=== PATIENT | female | born 1950 | race Caucasian/White ===

== ENCOUNTER → 2017-12-10 14:27 | Outpatient (CLI) | payer MEDICARE, OTHER, SELFPAY ==
[2017-12-10 14:39] LABS: Color, Urine Yellow (Yellow); Glucose, Dipstick Normal (Normal); Ketone-Dipstick Negative (Negative); Leukocyte Esterase-Dipstick 500 /ul (Negative); Nitrite-Dipstick Negative (Negative); Occult Blood-Urine 150 /ul (Negative); Protein-Dipstick 15 mg/dl (Negative); Urine Bilirubin Dipstick Negative (Negative); Urine Clarity Sl. Cloudy (Clear); Urine Urobilinogen Normal (Normal)
== END ==
PROVIDERS: Family Provider Family Medicine; PCP Family Medicine; Visit Provider Family Medicine
DX: N39.0 Urinary tract infection, site not specified (principal)
CPT/HCPCS: 81002; 87086; 87088

== ENCOUNTER → 2018-02-04 14:12 | Outpatient (CLI) | payer MEDICARE, OTHER, SELFPAY ==
--- NOTE | 2018-02-04 14:18 | RAD_ITS ---
STUDY: X-RAY CHEST REASON FOR EXAM: Female, 67 years old. Persistent cough. Chronic bronchitis. TECHNIQUE: PA and lateral views of the chest. COMPARISON: Comparison is made with prior study dated July 29, 2015. FINDINGS: Stable elevation of the right hemidiaphragm. No acute abnormality is seen. There is no demonstrated pleural abnormality. Normal size heart. Normal mediastinum and daisy. Normal visualized pulmonary arteries. Normal visualized aortic arch and descending thoracic aorta. There is a levoscoliosis of the thoracic lumbar junction. There is degenerative osteoarthritis of the bilateral shoulders. There is no demonstrated abnormality of the visualized soft tissue structures of the upper abdomen. RAD/Chest PA and Lateral IMPRESSION: Stable examination. No acute abnormality is seen. Electronically Signed: Gorge Welsh MD at 14:42 EDT Tel [phone], Service support ,
== END ==
PROVIDERS: Family Provider Family Medicine; PCP Family Medicine; Visit Provider Nurse Practitioner Acute Care
DX: J42 Unspecified chronic bronchitis (principal)
CPT/HCPCS: 71046

== ENCOUNTER 2018-02-06 03:00 | Emergency (ER) | payer MEDICARE, OTHER, SELFPAY ==
[2018-02-06 03:01] VITALS: BP 135/68; PULSE 84; RESP 24; TEMP 36.8; O2SAT 98; BMI 25.7
--- NOTE | 2018-02-06 03:16 | EKG12_ITS ---
Test Reason : SOB Blood Pressure : / mmHG Vent. Rate : 079 BPM Atrial Rate : 079 BPM P-R Int : 164 ms QRS Dur : 090 ms QT Int : 384 ms P-R-T Axes : 016 078 044 degrees QTc Int : 440 ms Normal sinus rhythm Incomplete right bundle branch block Confirmed by ROVERTO HERMAN, MATEO ([id number]), editor managing director JEFF GARCIA ([id number] on 02/09/2018 2:33:49 PM Referred By: Geovanna Pérez Confirmed By:MATEO LAYNE MD
--- NOTE | 2018-02-06 03:16 | RAD_ITS ---
STUDY: X-RAY CHEST REASON FOR EXAM: Female, 67 years old. Cough TECHNIQUE: Frontal and lateral views of the chest. COMPARISON: 02/04/2018 FINDINGS: The lungs are clear and expanded. There is no demonstrated pleural abnormality. Normal size heart. Normal mediastinum and daisy. Normal visualized pulmonary arteries. Normal visualized aortic arch and descending thoracic aorta. S shaped thoracolumbar scoliosis. Left rotator cuff repair. Remote rib trauma. There is no demonstrated abnormality of the visualized soft tissue structures of the upper abdomen. RAD/Chest PA and Lateral IMPRESSION: No acute pulmonary findings. Electronically Signed: Parag Baig MD at 4:53 EDT Tel , Service support ,
--- NOTE | 2018-02-06 03:17 | ED.VISSUMM ---
- ER Visit Summary Date of Service: 02/06/18 Chief Complaint: [] Shortness of breath, wheezing History of Present Illness: The patient is a 67 F [] history of asthma presents with wheezing in all nation. She reports she was seen by her prototype technician yesterday, received an intramuscular shot of steroids, underwent an x-ray which was reportedly negative and was started on azithromycin orally. She reports symptoms have worsened. She reports onset of symptoms approximately 5-6 days ago. Denies fevers. Reports cough productive of sputum. Denies hemoptysis. Physical Examination: [] Afebrile, vital signs stable. 67-year-old female no acute distress. Cardiovascular exam is regular rate and rhythm. Lungs reveal audible wheezing in all nation. Abdomen is soft and nontender. No lower extremity edema. Test Results: [] Chest x-ray 2 views: Negative per radiologist interpretation. Labs: CBC, BMP, troponin within normal limits. JG: Normal sinus rhythm, rate 79, no ectopy or ischemic changes. Unchanged from previous EKG. Emergency Department Course and Treatment: [] Patient received 3 albuterol and one Atrovent aerosols. She received intravenous Solu-Medrol. On serial exam she had improvement of symptoms. She had a negative lab and diagnostic workup. On serial exam she had improvement of symptoms however appears slightly anxious and was reporting muscle cramping her back secondary to coughing. She was provided 1 mg of Ativan intravenously prior to discharge. Her is at the bedside will drive her home. She was encouraged to fill her prescription for her Levaquin today. Follow-up with her prototype technician in the next several days. Treatment Plan: [] Discharge to follow-up with prototype technician. Initiate Levaquin prescription as provided by the prototype technician yesterday. Disposition: [] Discharge, stable. Impression: [] Bronchitis Bronchospasm This note was generated with [employer] dictation software. It may contain incorrect words, spelling, and punctuation that were not noted in review of the chart prior to signing ED Disposition - Plan for ED Patient: Chief Complaint: Shortness of Breath Referrals: Mayo Mccormick MD [Primary Care Provider] -
[2018-02-06 03:26] VITALS: PULSE 87; RESP 24; O2SAT 96
[2018-02-06] MEDS: Albuterol 2.5 MG/3 ML VIAL.NEB. INHALATION ×3 (03:26→03:33)
[2018-02-06] MEDS: Ipratropium/Albuterol Sulfate 3 ML AMPUL.NEB INHALATION (03:26)
[2018-02-06 03:33] VITALS: PULSE 89; RESP 22; O2SAT 97
[2018-02-06] MEDS: MethylPREDNISolone 125 MG/2 ML Vial IV (03:42)
[2018-02-06 03:56] LABS: Absolute Neutrophil Count 2.2 X10^3/uL (2.0-7.7); Basophil# 0.03 X10^3/uL; Basophil% 0.8 % (0-1); Eosinophil# 0.04 X10^3/uL; Eosinophils% 1.1 % (0-5); Hematocrit 43.8 % (37-47); Hemoglobin 14.2 g/dl (12.0-15.0); Lymphocyte % 24.7 % (19-41); Mean Corp Hgb Conc 32.4 g/gl (32-36); Mean Corpuscular Hgb 32.6 pg (27.0-32.0); Mean Corpuscular Volume 100.5 fL (81-99); Mean Platelet Vol. 11.3 fl (6.2-12.0); Monocyte# 0.44 X10^3/uL; Monocyte% 12.1 % (0-10); Neutrophil # 2.23 X10^3/uL (2.7-7.7); Neutrophil % 61.3 % (47-70); POSITIVE COUNT NO; POSITIVE DIFFERENTIAL NO; POSITIVE MORPHOLOGY NO; Platelet Count 109 K/mm3 (150-450); RBC Distribution Width SD 51.1 fl (35.1-43.9); Red Blood Count 4.36 M/mm3 (4.2-5.4); White Blood Count 3.6 K/mm3 (4.4-11.0)
[2018-02-06 04:11] LABS: Anion Gap 7 (5-15); BUN 18 mg/dL (7-18); BUN/Creat Ratio 21.8 RATIO (10-20); Calcium,Total 8.9 mg/dL (8.5-10.1); Chloride 111 mmol/L (98-107); Creatinine, Serum 0.82 mg/dL (0.55-1.02); EST Glomerular Filtration Rate 73 mL/min (>60); Est Glom Filt Rate - Afr Amer 89 mL/min (>60); Estimated Creatinine Clearance 47.82 ml/min; Glucose 84 mg/dL (74-106); Potassium 3.4 mmol/L (3.5-5.1); Sodium Level 147 mmol/L (136-145)
--- NOTE | 2018-02-06 05:01 | ED.DEP ---
ED Disposition - Plan for ED Patient: Disposition: Home or Assisted Living Chief Complaint: Shortness of Breath Instructions: ED Bronchitis Asthmatic Referrals: Mayo Mccormick MD [Primary Care Provider] -
[2018-02-06] MEDS: LORazepam 2 MG/ML Syringe 1 MG IV (05:04)
[2018-02-06 05:17] VITALS: BP 126/71; PULSE 94; RESP 18; O2SAT 96
== END 2018-02-06 05:18 | disposition home or self-care (01) ==
PROVIDERS: Emergency Provider Emergency Medicine; Family Provider Family Medicine; PCP Family Medicine
DX: J20.9 Acute bronchitis, unspecified (principal); J44.9 Chronic obstructive pulmonary disease, unspecified; Z79.899 Other long term (current) drug therapy
CPT/HCPCS: 71046; 80048; 84484; 85025; 93005; 94640; 96374; 96375; 99284; A4216

== ENCOUNTER 2018-02-07 15:05 | Emergency (ER) | payer MEDICARE, OTHER, SELFPAY ==
[2018-02-07 15:07] VITALS: BP 121/90; PULSE 113; RESP 23; TEMP 37; O2SAT 97; BMI 25.6
--- NOTE | 2018-02-07 15:12 | EKG12_ITS ---
Test Reason : COUGH Blood Pressure : / mmHG Vent. Rate : 117 BPM Atrial Rate : 117 BPM P-R Int : 148 ms QRS Dur : 082 ms QT Int : 328 ms P-R-T Axes : 050 086 026 degrees QTc Int : 457 ms Sinus tachycardia Nonspecific ST and T wave abnormality Abnormal ECG Confirmed by MIRA LOCO ([id number]), publications editor JEFF GARCIA ([id number]) on 02/21/2018 5:24:04 PM Referred By: Geovanna Pérez Confirmed By:MIRA LOCO
--- NOTE | 2018-02-07 15:12 | RAD_ITS ---
STUDY: X-RAY CHEST REASON FOR EXAM: Female, 67 years old. Cough. TECHNIQUE: Single PA view of the chest. COMPARISON: February 06, 2018. FINDINGS: The lungs are expanded. There is mild elevation of right hemidiaphragm. There is interstitial thickening visible both lungs. There is no demonstrated pleural abnormality. Normal size heart. Normal mediastinum and daisy. There is prominence of the pulmonary hilar arteries without peripheral pulmonary vascular congestion. There is atherosclerotic calcification of the aortic arch with tortuosity. There is demineralization of the osseous structures. There is moderate scoliosis of the thoracic and lumbar spine with convexity towards left. Estimated angulation is approximately 33 degrees. There are multilevel degenerative changes of the thoracic and lumbar spine. Patient has had previous left-sided shoulder surgery. There is no demonstrated abnormality of the visualized soft tissue structures of the upper abdomen. RAD/Chest 1 View (Portable) IMPRESSION: No radiographic evidence of acute cardiopulmonary disease. Electronically Signed: Olive Renner MD at 16:19 EDT , Service support ,
[2018-02-07] MEDS: Ipratropium/Albuterol Sulfate 3 ML AMPUL.NEB INHALATION (15:54)
[2018-02-07] MEDS: Albuterol 2.5 MG/3 ML VIAL.NEB. INHALATION ×3 (15:54→16:20)
[2018-02-07 16:06] VITALS: RESP 22; O2SAT 96
[2018-02-07 16:17] VITALS: O2SAT 96
[2018-02-07 16:20] VITALS: PULSE 120; RESP 18
--- NOTE | 2018-02-07 16:53 | ED.VISSUMM ---
- ER Visit Summary Date of Service: 02/07/18 Chief Complaint: Trouble breathing nonproductive cough History of Present Illness: The patient is a 67 F who was seen on the . She was given a prescription for levofloxacin Wednesday. She had take her first dose until today. She is presently on a tapering dose of prednisone. She denies history of PE or DVT. She denies any pleuritic chest pain. She does complain of a nonproductive cough. She also complains of congestion. She smoked for 1 year. She denies headache, visual, ocular auditory symptoms. She does complain of mild congestion and change in voice. She denies difficulty swallowing. She denies any chest pain. She denies nausea, vomiting or diarrhea. She denies any skin lesions. Physical Examination: Next field vital signs remarkable for a heart rate of 113 and respiratory 22. Pulse ox is 96% on room air. Temperature is 98.0?F. Patient has a hoarse voice. Head is atraumatic, cephalic. Pupils equal round reactive. Extra muscle intact. Conjunctive is not injected. TMs are normal. Nares are patent with no discharge. Uvula is midline with no posterior erythema XA. There is no postnasal drainage noted. Trachea is midline. There is no stridor. There is expiratory wheezing noted. Heart is rapid and regular. Abdomen is soft nontender. Insert lower extremity DVT she is alert oriented with a nonfocal neurologic exam. Test Results: Chest x-ray was ordered by nursing staff. Review of x-ray/interpretation of 2 view reveals no acute process. Cardiac silhouette is normal. Mediastinum is normal. There is no infiltrate noted. Emergency Department Course and Treatment: Patient was treated with DuoNeb, albuterol and Hycodan for her cough. Treatment Plan: Patient states she has had no improvement. I was in the room for discharge interview when she was not coughing. When I initially went to see her she could not stop coughing. She no longer has wheezing. She is not hypoxic therefore she will be discharged to home. A prescription for a spacer was given and a prescription for Hycodan cough syrup. Disposition: To home in stable and improved condition Impression: 1. Exacerbation of bronchitis with bronchospasm 2. Laryngitis This note was generated with [employer] software. It may contain incorrect words, spelling, and punctuation that were not noted in review of the chart prior to signing ED Disposition - Plan for ED Patient: Disposition: Home or Assisted Living Chief Complaint: Cough Instructions: ED Bronchitis Asthmatic Prescriptions: Hydrocodone Bit/Homatropine [Hycodan Syrup] 5 ml PO Q6H PRN PRN #30 udc PRN Reason: Cough Inhaler, Assist Devices [Space Chamber Plus] 1 ea UD #1 spacer Referrals: Mayo Mccormick MD [Primary Care Provider] - 3-5 Days if not improving Additional Instructions: Your prescription was electronically transmitted to [facility] pharmacy.
--- NOTE | 2018-02-07 17:02 | ED.DCSUM_ITS ---
- ER Visit Summary Date of Service: 02/07/18 Chief Complaint: Trouble breathing nonproductive cough History of Present Illness: The patient is a 67 F who was seen on the . She was given a prescription for levofloxacin Wednesday. She had take her first dose until today. She is presently on a tapering dose of prednisone. She denies history of PE or DVT. She denies any pleuritic chest pain. She does complain of a nonproductive cough. She also complains of congestion. She smoked for 1 year. She denies headache, visual, ocular auditory symptoms. She does complain of mild congestion and change in voice. She denies difficulty swallowing. She denies any chest pain. She denies nausea, vomiting or diarrhea. She denies any skin lesions. Physical Examination: Next field vital signs remarkable for a heart rate of 113 and respiratory 22. Pulse ox is 96% on room air. Temperature is 98.0?F. Patient has a hoarse voice. Head is atraumatic, cephalic. Pupils equal round reactive. Extra muscle intact. Conjunctive is not injected. TMs are normal. Nares are patent with no discharge. Uvula is midline with no posterior erythema XA. There is no postnasal drainage noted. Trachea is midline. There is no stridor. There is expiratory wheezing noted. Heart is rapid and regular. Abdomen is soft nontender. Insert lower extremity DVT she is alert oriented with a nonfocal neurologic exam. Test Results: Chest x-ray was ordered by nursing staff. Review of x-ray/ interpretation of 2 view reveals no acute process. Cardiac silhouette is normal. Mediastinum is normal. There is no infiltrate noted. Emergency Department Course and Treatment: Patient was treated with DuoNeb, albuterol and Hycodan for her cough. Treatment Plan: Patient states she has had no improvement. I was in the room for discharge interview when she was not coughing. When I initially went to see her she could not stop coughing. She no longer has wheezing. She is not hypoxic therefore she will be discharged to home. A prescription for a spacer was given and a prescription for Hycodan cough syrup. Disposition: To home in stable and improved condition Impression: 1. Exacerbation of bronchitis with bronchospasm 2. Laryngitis This note was generated with [employer] software. It may contain incorrect words, spelling, and punctuation that were not noted in review of the chart prior to signing ED Disposition - Plan for ED Patient: Disposition: Home or Assisted Living Chief Complaint: Cough Instructions: ED Bronchitis Asthmatic Prescriptions: Hydrocodone Bit/Homatropine [Hycodan Syrup] 5 ml PO Q6H PRN PRN #30 udc PRN Reason: Cough Inhaler, Assist Devices [Space Chamber Plus] 1 ea UD #1 spacer Referrals: Mayo Mccormick MD [Primary Care Provider] - 3-5 Days if not improving Additional Instructions: Your prescription was electronically transmitted to [facility] pharmacy.
[2018-02-07 17:10] VITALS: BP 122/69; PULSE 73; RESP 15; O2SAT 95
--- NOTE | 2018-02-08 16:09 | CM.ED ---
ED CALLBACK: Follow-up call placed to patient. Carmita states she is feeling some better today, but still has a productive cough. Reviewed with patient that she has an appointment with Dr. Huerta on 02/16/18. Patient states she did fill her prescriptions and is using them. I encouraged the patient to go ahead and make an appointment with her PCP. Patient states that she will do this today or tomorrow morning.
== END 2018-02-07 17:11 | disposition home or self-care (01) ==
PROVIDERS: Emergency Provider Emergency Medicine; Family Provider Family Medicine; PCP Family Medicine
DX: J20.9 Acute bronchitis, unspecified (principal); I10 Essential (primary) hypertension; E78.00 Pure hypercholesterolemia, unspecified; F32.9 Major depressive disorder, single episode, unspecified; K21.9 Gastro-esophageal reflux disease without esophagitis; Z87.891 Personal history of nicotine dependence; Z79.899 Other long term (current) drug therapy
CPT/HCPCS: 71045; 93005; 94640; 94760; 99284

== ENCOUNTER → 2018-05-04 17:49 | Outpatient (CLI) | payer MEDICARE, OTHER, SELFPAY | PROVIDERS: Family Provider Family Medicine; PCP Family Medicine; Visit Provider Nurse Practitioner Family | DX: N39.0 Urinary tract infection, site not specified (principal) | CPT/HCPCS: 87086; 87088 ==

== ENCOUNTER → 2018-05-17 12:55 | Outpatient (CLI) | payer MEDICARE, OTHER, SELFPAY ==
--- NOTE | 2018-05-17 14:19 | PFTCOMP ---
COMPLETE PULMONARY FUNCTION TEST INTERPRETATION Brief HPI: Patient is a 68 year old female, currently under the care of myself, who presents to [facility] for complete pulmonary function tests secondary to diagnosis of dyspnea. Respiratory therapist reports good effort and reproducible results. Interpretation: Forced expiration spirometry shows no large airways obstructive ventilatory defect with an FEV1 of 75% predicted. There is no significant bronchodilator response by ATS criteria. Spirograms are of good quality and plateau normally. The respiratory flow volume loop shows a normal pattern. Lung volumes by body plethysmography show a decreased total lung capacity at 3.05 L, 76% predicted. All other lung volumes are reduced symmetrically. Diffusion capacity by carbon monoxide is normal at 85% predicted. The airway resistance is elevated. Compared to previous pulmonary function tests from 02/10/2017, there has been a significant reduction in DLCO by 13%. Impression: Mild restrictive ventilatory defect with some decrease in DLCO compared to previous testing.
== END ==
PROVIDERS: Family Provider Family Medicine; PCP Family Medicine; Visit Provider Nurse Practitioner Acute Care
DX: R06.00 Dyspnea, unspecified (principal)
CPT/HCPCS: 94060; 94726; 94729

== ENCOUNTER → 2018-05-19 12:22 | Outpatient (CLI) | payer MEDICARE, OTHER, SELFPAY ==
[2018-05-19 12:42] VITALS: PULSE 89; PULSE 91; PULSE 92; PULSE 93; PULSE 94; PULSE 95; PULSE 98; O2SAT 94; O2SAT 96; O2SAT 97; O2SAT 98
--- NOTE | 2018-05-19 15:16 | PCM.PSN.6M ---
PSN 6 Minute Walk Test - 6 Minute Walk Test 6 Minute Walk Test: 6 Minute Walk Test PSN:6-Minute Walk Test Start: 05/19/18 12:42 Freq: Status: Active Protocol: RESP.6MINW Document 05/19/18 12:42 GIOVANNI (Rec: 05/19/18 12:44 GIOVANNI [id number]) 6 Minute Walk Test Date Performed 05/19/18 Time Performed 12:30 Height 5 ft Weight: 58.967 kg Weight in Pounds 130.[address]: Ezio Huerta Assistive device used: None Pre-test Oxygen Delivery Method Room Air Pulse Ox (%) 97 Pulse Rate (60-100 beats/min) 91 Dyspnea Herminia Scale (0-10) 0 Exertion Herminia Scale (6-20) 6 1st minute Oxygen Delivery Method Room Air Pulse Ox (%) 98 Pulse Rate (60-100 beats/min) 89 2nd minute Oxygen Delivery Method Room Air Pulse Ox (%) 98 Pulse Rate (60-100 beats/min) 92 3rd minute Oxygen Delivery Method Room Air Pulse Ox (%) 96 Pulse Rate (60-100 beats/min) 94 4th minute Oxygen Delivery Method Room Air Pulse Ox (%) 98 Pulse Rate (60-100 beats/min) 94 5th minute Oxygen Delivery Method Room Air Pulse Ox (%) 97 Pulse Rate (60-100 beats/min) 93 6th minute Oxygen Delivery Method Room Air Pulse Ox (%) 94 Pulse Rate (60-100 beats/min) 95 Dyspnea Herminia Scale (0-10) 2 Exertion Herminia Scale (6-20) 11 Post-test Oxygen Delivery Method Room Air Pulse Ox (%) 97 Pulse Rate (60-100 beats/min) 98 Full Laps Walked 20 Partial Lap, Number of Tiles Walked 0 Total Distance Walked (ft) 1180 - Interpretation Interpretation: The patient was able to ambulate 1180 over the course of 6 minutes on room air with no assistive devices or breaks. The patient experienced no significant desaturation or tachycardia during testing. These findings are consistent with a normal exercise oximetry. - Recommendations Recommendations: No supplemental oxygen is indicated at this time.
== END ==
PROVIDERS: Family Provider Family Medicine; PCP Family Medicine; Visit Provider Nurse Practitioner Acute Care
DX: R06.00 Dyspnea, unspecified (principal)
CPT/HCPCS: 94618

== ENCOUNTER → 2018-06-14 20:00 | Outpatient (CLI) | payer MEDICARE, OTHER, SELFPAY | PROVIDERS: Family Provider Family Medicine; PCP Family Medicine; Visit Provider Internal Medicine Critical Care Medicine | DX: G47.10 Hypersomnia, unspecified (principal); J45.40 Moderate persistent asthma, uncomplicated; J30.1 Allergic rhinitis due to pollen; M33.90 Dermatopolymyositis, unspecified, organ involvement unspecified | CPT/HCPCS: 95810 ==

== ENCOUNTER → 2018-06-21 20:00 | Outpatient (CLI) | payer MEDICARE, OTHER, SELFPAY | PROVIDERS: Family Provider Family Medicine; PCP Family Medicine; Visit Provider Nurse Practitioner Acute Care | DX: G47.33 Obstructive sleep apnea (adult) (pediatric) (principal) | CPT/HCPCS: 95811 ==

== ENCOUNTER → 2018-09-15 12:44 | Outpatient (CLI) | payer MEDICARE, OTHER, SELFPAY ==
[2018-08-24 09:42] VITALS: BMI 26.0
--- NOTE | 2018-09-15 12:59 | RAD_ITS ---
STUDY: X-RAY - ACUTE ABDOMINAL SERIES REASON FOR EXAM: Female, 68 years old. Intermittent constipation TECHNIQUE: Single view of the chest. Supine, and erect view(s) of the abdomen were obtained. 4 total views obtained COMPARISON: None. FINDINGS: Stable chronic elevation of the right hemidiaphragm There are interstitial fibrotic changes of the lungs. Normal size heart. Normal mediastinum and daisy. Normal visualized pulmonary arteries. Normal visualized aortic arch and descending thoracic aorta. There is a non-specific bowel gas pattern. The soft tissue structures of the abdomen and pelvis are unremarkable. Rotatory scoliosis of the thoracolumbar spine. RAD/Acute Abdomen Inc Chest IMPRESSION: No acute pulmonary or abdominal process Scoliosis Electronically Signed: Benedicto Amador MD at 12:04 EST , Service support ,
== END ==
PROVIDERS: Family Provider Family Medicine; PCP Family Medicine; Referring Provider Family Medicine; Visit Provider Family Medicine
DX: K58.9 Irritable bowel syndrome, unspecified (principal)
CPT/HCPCS: 74022

== ENCOUNTER → 2018-10-28 17:34 | Outpatient (CLI) | payer MEDICARE, OTHER, SELFPAY ==
[2018-08-24 09:42] VITALS: BMI 26.0
== END ==
PROVIDERS: Family Provider Family Medicine; PCP Family Medicine; Referring Provider Family Medicine; Visit Provider Family Medicine
DX: R39.9 Unspecified symptoms and signs involving the genitourinary system (principal)
CPT/HCPCS: 87086; 87088

== ENCOUNTER → 2018-12-01 17:26 | Outpatient (CLI) | payer MEDICARE, OTHER, SELFPAY ==
[2018-08-24 09:42] VITALS: BMI 26.0
== END ==
PROVIDERS: Family Provider Family Medicine; PCP Family Medicine; Referring Provider Nurse Practitioner Adult Health; Visit Provider Nurse Practitioner Adult Health
DX: N39.0 Urinary tract infection, site not specified (principal)
CPT/HCPCS: 87086; 87088

== ENCOUNTER → 2018-12-12 08:15 | Outpatient (CLI) | payer MEDICARE, OTHER, SELFPAY ==
[2018-08-24 09:42] VITALS: BMI 26.0
--- NOTE | 2018-12-12 08:18 | US_ITS ---
STUDY: THYROID ULTRASOUND REASON FOR EXAM: Female, 68 years old. Thyroid nodule TECHNIQUE: Ultrasound evaluation of the thyroid was performed with real-time and static singh-scale imaging. COMPARISON: 01/23/2016 FINDINGS: RIGHT LOBE: The right lobe of the thyroid gland measures 4 x 1.8 x 1.7 cm. There is a homogeneous echotexture. Again noted are 2 subcentimeter complex nodules, largest one measuring 3 x 3 x 3 mm LEFT LOBE: The left lobe of the thyroid gland measures 4 x 2 x 1.4 cm. There is a homogeneous echotexture. Again noted are several subcentimeter complex and primarily solid nodules. Largest is in the mid pole region measuring 5 x 5 x 3 mm. ISTHMUS: The isthmus measures 2 mm. The regional lymph nodes are normal. US/Thyroid IMPRESSION: Stable subcentimeter nodules bilaterally, otherwise unremarkable exam Electronically Signed: Ramón Liz DO at 12:50 EDT Tel , Service support ,
== END ==
PROVIDERS: Family Provider Family Medicine; PCP Family Medicine; Referring Provider Family Medicine; Visit Provider Family Medicine
DX: E04.2 Nontoxic multinodular goiter (principal)
CPT/HCPCS: 76536

== ENCOUNTER → 2018-12-19 | Outpatient (CLI) | payer MEDICARE, OTHER, SELFPAY ==
[2018-08-24 09:42] VITALS: BMI 26.0
[2018-12-19 12:39] LABS: Absolute Lymphocyte Count 0.69 X10^3/ul (0.83-4.51); Absolute Neutrophil Count 1.6 X10^3/uL (2.0-7.7); Basophil# 0.06 X10^3/uL; Basophil% 2.2 % (0-1); Eosinophil# 0.06 X10^3/uL; Eosinophils% 2.2 % (0-5); Hematocrit 44.2 % (37-47); Hemoglobin 14.2 g/dl (12.0-15.0); Lymphocyte # 0.69 X10^3/ul (4.0); Lymphocyte % 25.2 % (19-41); Mean Corp Hgb Conc 32.1 g/gl (32-36); Mean Corpuscular Hgb 31.8 pg (27.0-32.0); Mean Corpuscular Volume 99.1 fL (81-99); Mean Platelet Vol. 12.3 fl (6.2-12.0); Monocyte# 0.31 X10^3/uL; Monocyte% 11.3 % (0-10); Neutrophil # 1.62 X10^3/uL (2.7-7.7); Neutrophil % 59.1 % (47-70); Platelet Count 100 K/mm3 (150-450); RBC Distribution Width CV 13.5 % (11.6-14.6); RBC Distribution Width SD 48.2 fl (35.1-43.9); Red Blood Count 4.46 M/mm3 (4.2-5.4); White Blood Count 2.7 K/mm3 (4.4-11.0)
[2018-12-19 12:50] LABS: POSITIVE COUNT NO; POSITIVE DIFFERENTIAL NO; POSITIVE MORPHOLOGY NO
== END | disposition home or self-care (01) ==
LOC: MTLAB 09:17
PROVIDERS: Family Provider Family Medicine; PCP Family Medicine; Referring Provider Internal Medicine Rheumatology; Visit Provider Internal Medicine Rheumatology
DX: D72.819 Decreased white blood cell count, unspecified (principal)
CPT/HCPCS: 36415; 85025

== ENCOUNTER → 2018-12-28 12:56 | Outpatient (CLI) | payer MEDICARE, OTHER, SELFPAY ==
[2018-08-24 09:42] VITALS: BMI 26.0
--- NOTE | 2018-12-28 12:59 | BI_ITS ---
MAMMOGRAPHY - BILATERAL SCREENING REASON FOR EXAM: Female, 68 years old. Routine annual screening examination. PERTINENT HISTORY: Non-contributory. TECHNIQUE: Digital bilateral breast apurva (3D mammographic acquisition) in the CC and MLO projections. 2-D mediolateral oblique (MLO) and craniocaudad (CC) views of both breasts were obtained. CAD: Full Field Digital Mammography with Computer Added Detection was performed. COMPARISON: Comparison is made with prior study dated January 06, 2017 and August 06, 2015. FINDINGS: Breast Composition: The breasts are heterogeneously dense, which may obscure small masses. There are no dominant masses or suspicious calcifications. No other significant abnormalities are identified. There has been no significant change since the prior study. BI/SCREENING MAMM (CAD), BILAT IMPRESSION: Stable bilateral screening mammogram. Yearly follow-up mammogram recommended. (A) ASSESSMENT CATEGORY: BIRADS Category 1: Negative. A letter regarding these results will be sent to the patient by the facility within 30 days. Approximately 10% of breast cancers are not detected by mammography. A normal mammogram should not delay biopsy of a clinically suspicious abnormality. [id number] Electronically Signed: Gorge Welsh, at 15:02 EDT , Service support ,
== END ==
PROVIDERS: Family Provider Family Medicine; PCP Family Medicine; Referring Provider Obstetrics & Gynecology; Visit Provider Obstetrics & Gynecology
DX: Z12.31 Encounter for screening mammogram for malignant neoplasm of breast (principal)
CPT/HCPCS: 77063; 77067

== ENCOUNTER → 2019-01-03 08:59 | Outpatient (CLI) | payer MEDICARE, OTHER, SELFPAY ==
[2018-08-24 09:42] VITALS: BMI 26.0
[2019-01-03 10:34] LABS: Absolute Neutrophil Count 2.1 X10^3/uL (2.0-7.7); Basophil# 0.06 X10^3/uL; Basophil% 1.8 % (0-1); Eosinophil# 0.06 X10^3/uL; Eosinophils% 1.8 % (0-5); Hematocrit 45.9 % (37-47); Hemoglobin 14.5 g/dl (12.0-15.0); Lymphocyte % 20.8 % (19-41); Mean Corp Hgb Conc 31.6 g/gl (32-36); Mean Corpuscular Hgb 31.6 pg (27.0-32.0); Mean Platelet Vol. 12.3 fl (6.2-12.0); Monocyte# 0.41 X10^3/uL; Monocyte% 12.2 % (0-10); Neutrophil # 2.14 X10^3/uL (2.7-7.7); Neutrophil % 63.4 % (47-70); Platelet Count 113 K/mm3 (150-450); RBC Distribution Width CV 13.5 % (11.6-14.6); RBC Distribution Width SD 49.2 fl (35.1-43.9); Red Blood Count 4.59 M/mm3 (4.2-5.4); White Blood Count 3.4 K/mm3 (4.4-11.0)
[2019-01-03 10:35] LABS: POSITIVE COUNT NO; POSITIVE DIFFERENTIAL NO; POSITIVE MORPHOLOGY NO
== END ==
PROVIDERS: Family Provider Family Medicine; PCP Family Medicine; Referring Provider Internal Medicine Rheumatology; Visit Provider Internal Medicine Rheumatology
DX: D72.819 Decreased white blood cell count, unspecified (principal)
CPT/HCPCS: 36415; 85025

== ENCOUNTER → 2019-04-03 09:14 | Outpatient (CLI) | payer MEDICARE, OTHER, SELFPAY ==
[2019-02-28 14:00] VITALS: BMI 25.5
[2019-04-03 09:45] LABS: Absolute Lymphocyte Count 0.67 X10^3/uL (0.83-4.51); Basophil# 0.05 X10^3/uL; Basophil% 1.6 % (0-1); Eosinophil# 0.08 X10^3/uL; Eosinophils% 2.6 % (0-5); Hematocrit 46.6 % (37-47); Lymphocyte # 0.67 X10^3/ul (4.0); Lymphocyte % 21.4 % (19-41); Mean Corp Hgb Conc 32.2 g/dL (32-36); Mean Corpuscular Hgb 31.4 pg (27.0-32.0); Mean Corpuscular Volume 97.7 fL (81-99); Mean Platelet Vol. 11.8 fl (6.2-12.0); Monocyte# 0.34 X10^3/uL; Monocyte% 10.9 % (0-10); NRBC Flagged by Analyzer 0 % (0-5); Neutrophil # 1.98 X10^3/uL (2.7-7.7); Neutrophil % 63.2 % (47-70); Platelet Count 99 K/mm3 (150-450); RBC Distribution Width CV 12.4 % (11.6-14.6); RBC Distribution Width SD 44.8 fl (35.1-43.9); Red Blood Count 4.77 M/mm3 (4.2-5.4); White Blood Count 3.1 K/mm3 (4.4-11.0)
[2019-04-03 10:25] LABS: Anion Gap 1 (5-15); BUN 15 mg/dL (7-18); BUN/Creat Ratio 17.1 RATIO (10-20); Calcium,Total 9.3 mg/dL (8.5-10.1); Chloride 107 mmol/L (98-107); Cholesterol 145 mg/dL (200); Creatinine, Serum 0.88 mg/dL (0.55-1.02); EST Glomerular Filtration Rate 68 mL/min (>60); Est Glom Filt Rate - Afr Amer 82 mL/min (>60); Glucose 86 mg/dL (74-106); High Density Lipoprotein 69 mg/dL; Potassium 3.8 mmol/L (3.5-5.1); Sodium Level 139 mmol/L (136-145); Thyroid Stim Hormone (TSH) 2.08 uIU/mL (0.358-3.74); Triglycerides 66 mg/dL; Very Low Density Lipoprotein 13 mg/dL (5-40)
== END ==
PROVIDERS: Family Provider Family Medicine; Visit Provider Family Medicine
DX: Z00.00 Encounter for general adult medical examination without abnormal findings (principal); E04.2 Nontoxic multinodular goiter; D69.6 Thrombocytopenia, unspecified; K58.9 Irritable bowel syndrome, unspecified
CPT/HCPCS: 36415; 80048; 80061; 84443; 85025

== ENCOUNTER → 2019-05-25 10:38 | Outpatient (CLI) | payer MEDICARE, OTHER, SELFPAY ==
[2019-02-28 14:00] VITALS: BMI 25.5
[2019-05-25 11:00] VITALS: PULSE 73; PULSE 76; PULSE 78; PULSE 79; PULSE 80; PULSE 81; PULSE 82; PULSE 85; O2SAT 95; O2SAT 96; O2SAT 97; O2SAT 98
--- NOTE | 2019-05-26 08:45 | PCM.PSN.6M ---
PSN 6 Minute Walk Test - 6 Minute Walk Test 6 Minute Walk Test: 6 Minute Walk Test PSN:6-Minute Walk Test Start: 05/25/19 11:24 Freq: Status: Active Protocol: RESP.6MINW Document 05/25/19 11:00 HG (Rec: 05/25/19 11:28 HG [id number]) 6 Minute Walk Test Date Performed 05/25/19 Time Performed 11:00 Height 5 ft Weight: 130 lb Weight in Pounds 130.[address]: Ezio Huerta Assistive device used: None Pre-test Oxygen Delivery Method Room Air Pulse Ox (%) 97 Pulse Rate (60-100 beats/min) 73 Dyspnea Herminia Scale (0-10) 0 Exertion Herminia Scale (6-20) 6 1st minute Oxygen Delivery Method Room Air Pulse Ox (%) 98 Pulse Rate (60-100 beats/min) 76 2nd minute Oxygen Delivery Method Room Air Pulse Ox (%) 96 Pulse Rate (60-100 beats/min) 78 3rd minute Oxygen Delivery Method Room Air Pulse Ox (%) 98 Pulse Rate (60-100 beats/min) 80 4th minute Oxygen Delivery Method Room Air Pulse Ox (%) 97 Pulse Rate (60-100 beats/min) 81 5th minute Oxygen Delivery Method Room Air Pulse Ox (%) 95 Pulse Rate (60-100 beats/min) 85 6th minute Oxygen Delivery Method Room Air Pulse Ox (%) 98 Pulse Rate (60-100 beats/min) 82 Post-test Oxygen Delivery Method Room Air Pulse Ox (%) 98 Pulse Rate (60-100 beats/min) 79 Dyspnea Herminia Scale (0-10) 1 Exertion Herminia Scale (6-20) 8 Full Laps Walked 17 Partial Lap, Number of Tiles Walked 0 Total Distance Walked (ft) 1003 - Interpretation Interpretation: The patient ambulated 1003 feet over the course of 6 minutes beginning on room air without assistive devices or breaks. Pretesting oxygen saturation was noted to be 97% on room air. With ambulation, the marjan oxygen saturation was 95%. There was no significant exertional oxygen desaturation. - Recommendations Recommendations: There is no indication for the use of supplemental oxygen at this time.
== END ==
PROVIDERS: Family Provider Family Medicine; PCP Family Medicine; Referring Provider Internal Medicine Critical Care Medicine; Visit Provider Internal Medicine Critical Care Medicine
DX: R06.02 Shortness of breath (principal)
CPT/HCPCS: 94618

== ENCOUNTER → 2019-09-25 13:49 | Outpatient (CLI) | payer MEDICARE, OTHER, SELFPAY ==
[2019-08-30 14:15] VITALS: BMI 25.4
== END ==
PROVIDERS: Family Provider Family Medicine; PCP Family Medicine; Referring Provider Nurse Practitioner Acute Care; Visit Provider Nurse Practitioner Acute Care
DX: J42 Unspecified chronic bronchitis (principal)
CPT/HCPCS: 87070; 87205

== ENCOUNTER → 2019-11-14 12:50 | Outpatient (CLI) | payer MEDICARE, OTHER, SELFPAY ==
[2019-08-30 14:15] VITALS: BMI 25.4
--- NOTE | 2019-11-14 12:53 | BD_ITS ---
STUDY: DUAL ENERGY X-RAY ABSORPTIOMETRY / DXA REASON FOR EXAM: Female, 69 years old. Age of penny- 48. Pat is 131.8# and 4''11 and quot; a loss of 2 and quot; per pat. Used an HRT a long time ago. In the past she took Prednisone. Past use of Depakote. She has been on Fosamax for 3-4 yrs. now. She takes a multi-vit. She uses inhalers. Does not exercise. Mom has osteo. TECHNIQUE: Bone Mineral Density (BMD) measurements of lumbar spine and bilateral hips were obtained. COMPARISON: Comparison is made with prior examination dated September 02, 2017. FINDINGS: Lumbar Spine (L1-L4): g/cm2 (1.046) / T-score (-1.3) / Z-score (0.4) Findings are suggestive of osteopenia with a low fracture risk. Left Femur Total: g/cm2 (0.733) / T-score (-2.2) / Z-score (-0.7) Left Femoral Neck: g/cm2 (-0.720) / T-score (-2.3) / Z-score (-0.6) Right Femur Total: g/cm2 (0.766) / T-score (-1.9) / Z-score (-0.5) Right Femoral Neck: g/cm2 (0.731) / T-score (-2.2) / Z-score (-0.5) The T-Scores on the most recent prior examination were: Lumbar Spine (L1-L4): There has been improvement of bone density since the previous examination. Left Femur Total: which represents a worsening of 5.4%. Right Femur Total: which represents a worsening of 2.9%. BD/Dexa Bone Density Study IMPRESSION: The patient is considered osteopenic as outlined below according to World Curly Organization (WHO) criteria with a high fracture risk. There has been worsening of bone density since the previous examination. Reference Information: The T-score is the number of standard deviations above or below the standard which is normal for young adults at their peak bone mineral density. The World Health Organization (WHO) interprets the T-scores as follows: Above -1 Normal bone density Between -1 and -2.5 Osteopenia Equal to / or below -2.5 Osteoporosis As a practical clinical guideline, osteopenia may be graded as follows: Mild -1 through -1.5 Moderate -1.6 through -2.0 Severe -2.1 through -2.4 The Z-score is the number of standard deviations above or below age-matched controls. A Z-score of less than -1.5 would be considered abnormal. References: 1. NIH Osteoporosis and Related Bone Diseases http://www.osteo.org 2. International Society for Clinical Densitometry http://www.iscd.org 3. National Osteoporosis Foundation http://www.nof.org Electronically Signed: Gorge Welsh, at 13:48 EST , Service support ,
== END ==
PROVIDERS: PCP Family Medicine; Referring Provider Internal Medicine Rheumatology; Visit Provider Internal Medicine Rheumatology
DX: M81.0 Age-related osteoporosis without current pathological fracture (principal)
CPT/HCPCS: 77080

== ENCOUNTER → 2020-02-21 14:53 | Outpatient (CLI) | payer MEDICARE, OTHER, SELFPAY ==
[2019-08-30 14:15] VITALS: BMI 25.4
--- NOTE | 2020-02-21 14:55 | BI_ITS ---
MAMMOGRAPHY - BILATERAL SCREENING REASON FOR EXAM: Female, 69 years old. Routine annual screening examination. PERTINENT HISTORY: Non-contributory. TECHNIQUE: Digital bilateral breast elmer (3D mammographic acquisition) in the CC and MLO projections. 2-D mediolateral oblique (MLO) and craniocaudad (CC) views of both breasts were obtained. CAD: Full Field Digital Mammography with Computer Added Detection was performed. COMPARISON: Comparison is made with prior examination dated December 28, 2018 and January 06, 2017. FINDINGS: Breast Composition: The breasts are heterogeneously dense, which may obscure small masses. There are no dominant masses or suspicious calcifications. No other significant abnormalities are identified. There has been no significant change since the prior study. BI/SCREEN MAMM (CAD) W/ELMER BILAT IMPRESSION: Stable bilateral screening mammogram. Yearly follow-up mammogram recommended. (A) ASSESSMENT CATEGORY: BIRADS Category 1: Negative. A letter regarding these results will be sent to the patient by the facility within 30 days. Approximately 10% of breast cancers are not detected by mammography. A normal mammogram should not delay biopsy of a clinically suspicious abnormality. [id number] Electronically Signed: Gorge Welsh, at 15:33 EDT , Service support ,
== END ==
PROVIDERS: PCP Family Medicine; Referring Provider Obstetrics & Gynecology; Visit Provider Obstetrics & Gynecology
DX: Z12.31 Encounter for screening mammogram for malignant neoplasm of breast (principal)
CPT/HCPCS: 77063; 77067

== ENCOUNTER → 2020-07-12 09:37 | Outpatient (CLI) | payer MEDICARE, OTHER, SELFPAY ==
[2020-02-27 06:03] VITALS: BMI 27.0
[2020-07-12 13:28] LABS: Absolute Lymphocyte Count 0.64 X10^3/uL (0.83-4.51); Absolute Neutrophil Count 1.6 X10^3/uL (2.0-7.7); Basophil# 0.06 X10^3/uL; Basophil% 2.2 % (0-1); Eosinophils% 3.7 % (0-5); Hematocrit 47.2 % (37-47); Hemoglobin 14.9 g/dL (12.0-15.0); Lymphocyte # 0.64 X10^3/ul (4.0); Lymphocyte % 23.4 % (19-41); Mean Corp Hgb Conc 31.6 g/dL (32-36); Mean Corpuscular Hgb 31.4 pg (27.0-32.0); Mean Corpuscular Volume 99.4 fL (81-99); Mean Platelet Vol. 11.8 fl (6.2-12.0); Monocyte# 0.33 X10^3/uL; Monocyte% 12.1 % (0-10); NRBC Flagged by Analyzer 0 % (0-5); Neutrophil # 1.59 X10^3/uL (2.7-7.7); Neutrophil % 58.2 % (47-70); Platelet Count 116 K/mm3 (150-450); RBC Distribution Width CV 13.2 % (11.6-14.6); RBC Distribution Width SD 48.4 fl (35.1-43.9); Red Blood Count 4.75 M/mm3 (4.2-5.4); White Blood Count 2.7 K/mm3 (4.4-11.0)
[2020-07-12 13:40] LABS: AST(SGOT) 24 U/L (15-37); Alanine Aminotransfer ALT/SGPT 32 U/L (13-56); Albumin, Serum 3.8 g/dL (3.2-5.0); Alkaline Phosphatase 68 U/L (45-117); Bilirubin, Direct 0.15 mg/dL (0.00-0.30); EST Glomerular Filtration Rate 59 mL/min (>60); Est Glom Filt Rate - Afr Amer 71 mL/min (>60); Globulin 3.1 g/dL (2.2-4.2); Protein, Total 6.9 g/dL (6.4-8.2)
== END ==
PROVIDERS: PCP Family Medicine; Referring Provider Internal Medicine Rheumatology; Visit Provider Internal Medicine Rheumatology
DX: M33.90 Dermatopolymyositis, unspecified, organ involvement unspecified (principal); Z79.899 Other long term (current) drug therapy
CPT/HCPCS: 36415; 80076; 82565; 85025

== ENCOUNTER → 2020-08-09 09:01 | Outpatient (CLI) | payer MEDICARE, OTHER, SELFPAY ==
[2020-02-27 06:03] VITALS: BMI 27.0
[2020-08-09 10:46] LABS: Absolute Lymphocyte Count 0.89 X10^3/uL (0.83-4.51); Absolute Neutrophil Count 2.1 X10^3/uL (2.0-7.7); Basophil# 0.06 X10^3/uL; Basophil% 1.7 % (0-1); Eosinophil# 0.08 X10^3/uL; Eosinophils% 2.3 % (0-5); Hematocrit 47.7 % (37-47); Hemoglobin 14.7 g/dL (12.0-15.0); Lymphocyte # 0.89 X10^3/ul (4.0); Lymphocyte % 25.1 % (19-41); Mean Corp Hgb Conc 30.8 g/dL (32-36); Mean Corpuscular Volume 100.6 fL (81-99); Mean Platelet Vol. 12.5 fl (6.2-12.0); Monocyte# 0.39 X10^3/uL; NRBC Flagged by Analyzer 0 % (0-5); Neutrophil # 2.12 X10^3/uL (2.7-7.7); Neutrophil % 59.6 % (47-70); Platelet Count 127 K/mm3 (150-450); RBC Distribution Width CV 13.6 % (11.6-14.6); RBC Distribution Width SD 51.4 fl (35.1-43.9); Red Blood Count 4.74 M/mm3 (4.2-5.4); White Blood Count 3.6 K/mm3 (4.4-11.0)
== END ==
PROVIDERS: PCP Family Medicine; Referring Provider Internal Medicine Rheumatology; Visit Provider Internal Medicine Rheumatology
DX: M33.90 Dermatopolymyositis, unspecified, organ involvement unspecified (principal)
CPT/HCPCS: 36415; 85025

== ENCOUNTER → 2020-08-20 12:52 | Outpatient (CLI) | payer MEDICARE, OTHER, SELFPAY ==
[2020-02-27 06:03] VITALS: BMI 27.0
--- NOTE | 2020-08-20 16:33 | PFTCOMP ---
COMPLETE PULMONARY FUNCTION TEST INTERPRETATION Brief HPI: Patient is a 70 year old female, currently under the care of myself, who presents to [facility] for complete pulmonary function tests secondary to diagnosis of asthma. Respiratory therapist reports good effort and reproducible results. Interpretation: Forced expiration spirometry shows no large airways obstructive ventilatory defect with an FEV1 of 70% predicted. There is no significant bronchodilator response by strict ATS criteria. Spirograms are of good quality and plateau normally. The respiratory flow volume loop shows a normal pattern. Lung volumes by body plethysmography show a normal total lung capacity at 3.14 L, 83% predicted. All other lung volumes are within normal limits. Diffusion capacity by carbon monoxide is normal at 89% predicted. The airway resistance is elevated. Compared to previous pulmonary function tests from 05/17/2018, there has been no significant change. Impression: These pulmonary function tests are relatively within normal limits. There is been no significant change compared to 2018.
== END ==
PROVIDERS: PCP Family Medicine; Referring Provider Internal Medicine Critical Care Medicine; Visit Provider Internal Medicine Critical Care Medicine
DX: M33.90 Dermatopolymyositis, unspecified, organ involvement unspecified (principal); J45.40 Moderate persistent asthma, uncomplicated
CPT/HCPCS: 94060; 94726; 94729

== ENCOUNTER → 2020-12-27 13:08 | Outpatient (CLI) | payer MEDICARE, OTHER, SELFPAY ==
[2020-08-27 13:05] VITALS: BMI 27.6
[2020-12-27 15:51] LABS: Albumin, Serum 3.8 g/dL (3.2-5.0); BUN 15 mg/dL (7-18); BUN/Creat Ratio 18.8 RATIO (10-20); Calcium,Total 9.1 mg/dL (8.5-10.1); Chloride 108 mmol/L (98-107); EST Glomerular Filtration Rate 75 mL/min (>60); Est Glom Filt Rate - Afr Amer 91 mL/min (>60); Glucose 85 mg/dL (74-106); Phosphorus 2.5 mg/dL (2.5-4.9); Potassium 3.8 mmol/L (3.5-5.1); Sodium Level 143 mmol/L (136-145)
== END ==
PROVIDERS: PCP Family Medicine; Referring Provider Internal Medicine Rheumatology; Visit Provider Internal Medicine Rheumatology
DX: N28.9 Disorder of kidney and ureter, unspecified (principal)
CPT/HCPCS: 36415; 80069

== ENCOUNTER → 2021-02-07 14:47 | Outpatient (CLI) | payer MEDICARE, OTHER, SELFPAY ==
[2020-08-27 13:05] VITALS: BMI 27.6
--- NOTE | 2021-02-07 14:52 | RAD_ITS ---
STUDY: X-RAY - ABDOMEN/PELVIS REASON FOR EXAM: Female, 70 years old. IBS TECHNIQUE: AP supine and upright views of the abdomen and pelvis. COMPARISON: None. FINDINGS: Normal visualized lung bases. There is an unremarkable bowel gas pattern. There is no demonstrated free abdominal air. The visualized liver, spleen and kidneys are grossly normal in size and morphology. There are calcified phleboliths in the pelvis. Moderate levoscoliosis of the thoracolumbar spine. Injection granulomata in the bilateral hip soft tissues. RAD/Abd Inc Decub and/or Erect IMPRESSION: Nonobstructive bowel gas pattern. Electronically Signed: Refugio Mckeon MD ([place]) at 14:39 EDT , Service support ,
[2021-02-07 17:46] LABS: Anion Gap 1 (5-15); BUN 19 mg/dL (7-18); BUN/Creat Ratio 27.3 RATIO (10-20); Calcium,Total 9.7 mg/dL (8.5-10.1); Chloride 109 mmol/L (98-107); EST Glomerular Filtration Rate 88 mL/min (>60); Est Glom Filt Rate - Afr Amer 107 mL/min (>60); Glucose 60 mg/dL (74-106); Potassium 3.6 mmol/L (3.5-5.1); Sodium Level 145 mmol/L (136-145)
== END ==
PROVIDERS: PCP Family Medicine; Referring Provider Family Medicine; Visit Provider Family Medicine
DX: K58.9 Irritable bowel syndrome, unspecified (principal)
CPT/HCPCS: 36415; 74019; 80048

== ENCOUNTER → 2021-03-21 10:00 | Outpatient (CLI) | payer MEDICARE, OTHER, SELFPAY ==
[2021-02-27 05:51] VITALS: BMI 26.9
--- NOTE | 2021-03-21 10:04 | RAD_ITS ---
EXAM: XR ABDOMEN, 2 VIEWS : 1950 CLINICAL INDICATION: ABDOMINAL PAIN TECHNIQUE: Frontal view of the abdomen/pelvis with upright view of the abdomen. This report was created using [employer] report generation technology. COMPARISON: None. FINDINGS: LOWER THORAX: No acute pathology. INTRAPERITONEAL SPACE: No free air. GASTROINTESTINAL TRACT: Unremarkable. Non-obstructive. No bowel or stomach distention. ORGANS: Unremarkable as visualized. No organomegaly. No abnormal calcifications. BONES/JOINTS: Curvature of the thoracolumbar spine. SOFT TISSUES: No acute pathology. RAD/Abd Inc Decub and/or Erect IMPRESSION: No acute findings in the abdomen or pelvis. at 1520 Reported and signed by: Stanton Navarro MD Electronically Signed: Stanton Navarro MD at 15:19 EDT Tel , Service support ,
[2021-03-21 12:29] LABS: Absolute Lymphocyte Count 0.65 X10^3/uL (0.83-4.51); Absolute Neutrophil Count 2.3 X10^3/uL (2.0-7.7); Basophil# 0.06 X10^3/uL; Basophil% 1.8 % (0-1); Eosinophil# 0.07 X10^3/uL; Eosinophils% 2.1 % (0-5); Hematocrit 45.7 % (37-47); Hemoglobin 14.3 g/dL (12.0-15.0); Lymphocyte # 0.65 X10^3/ul (0.83-4.51); Lymphocyte % 19.2 % (19-41); Mean Corp Hgb Conc 31.3 g/dL (32-36); Mean Corpuscular Hgb 30.8 pg (27.0-32.0); Mean Corpuscular Volume 98.3 fL (81-99); Mean Platelet Vol. 12.2 fl (6.2-12.0); Monocyte# 0.34 X10^3/uL; NRBC Flagged by Analyzer 0 % (0-5); Neutrophil # 2.26 X10^3/uL (2.7-7.7); Neutrophil % 66.6 % (47-70); Platelet Count 103 K/mm3 (150-450); RBC Distribution Width CV 13.1 % (11.6-14.6); RBC Distribution Width SD 47.4 fl (35.1-43.9); Red Blood Count 4.65 M/mm3 (4.2-5.4); White Blood Count 3.4 K/mm3 (4.4-11.0)
[2021-03-21 12:46] LABS: CPK Total, Creatine Kinase 73 U/L (26-192)
== END ==
PROVIDERS: Internal Medicine Rheumatology; PCP Family Medicine; Referring Provider Family Medicine; Visit Provider Family Medicine
DX: D72.819 Decreased white blood cell count, unspecified (principal); M33.90 Dermatopolymyositis, unspecified, organ involvement unspecified; R10.9 Unspecified abdominal pain
CPT/HCPCS: 36415; 74019; 82550; 85025

== ENCOUNTER → 2021-04-14 14:26 | Outpatient (CLI) | payer MEDICARE, OTHER, SELFPAY ==
[2021-02-27 05:51] VITALS: BMI 26.9
[2021-04-14 17:50] LABS: Hematocrit 47.4 % (37-47); Mean Corp Hgb Conc 31.6 g/dL (32-36); Mean Corpuscular Volume 97.9 fL (81-99); Mean Platelet Vol. 12.3 fl (6.2-12.0); Platelet Count 140 K/mm3 (150-450); RBC Distribution Width CV 12.9 % (11.6-14.6); RBC Distribution Width SD 46.4 fl (35.1-43.9); Red Blood Count 4.84 M/mm3 (4.2-5.4); White Blood Count 4.2 K/mm3 (4.4-11.0)
[2021-04-14 18:03] LABS: Erythrocyte Sedimentation Rate 3 mm/hr (0-30)
[2021-04-14 18:12] LABS: Ferritin 23 ng/mL (8-252); Iron 66 ug/dL (50-170)
[2021-04-16 16:08] LABS: Endomysial Antibody IgA Negative (Negative)
[2021-04-16 21:26] LABS: Immunoglobulin A 166 mg/dL (64-422); t-Transglutaminase IgA <2 U/mL (0-3)
== END ==
PROVIDERS: PCP Family Medicine; Referring Provider Internal Medicine Gastroenterology; Visit Provider Internal Medicine Gastroenterology
DX: D64.9 Anemia, unspecified (principal); K59.00 Constipation, unspecified
CPT/HCPCS: 36415; 82728; 82784; 83516; 83540; 85027; 85652; 86255

== ENCOUNTER → 2021-05-01 09:27 | Outpatient (CLI) | payer MEDICARE, OTHER, SELFPAY ==
[2021-02-27 05:51] VITALS: BMI 26.9
== END ==
PROVIDERS: PCP Family Medicine; Referring Provider Ophthalmology; Visit Provider Ophthalmology
DX: Z00.00 Encounter for general adult medical examination without abnormal findings (principal)
CPT/HCPCS: 36415

== ENCOUNTER → 2021-05-23 14:55 | Outpatient (CLI) | payer MEDICARE, OTHER, SELFPAY ==
--- NOTE | 2021-05-23 14:55 | BI_ITS ---
MAMMOGRAPHY - BILATERAL SCREENING REASON FOR EXAM: Female, 71 years old. Routine annual screening examination. PERTINENT HISTORY: Non-contributory. TECHNIQUE: Digital bilateral breast elmer (3D mammographic acquisition) in the CC and MLO projections. 2-D mediolateral oblique (MLO) and craniocaudad (CC) views of both breasts were obtained. CAD: Full Field Digital Mammography with Computer Added Detection was performed. COMPARISON: Comparison is made with prior study dated 02/21/2020 and 12/29/1999. FINDINGS: Breast Composition: The breasts are heterogeneously dense, which may obscure small masses. There are no dominant masses or suspicious calcifications. No other significant abnormalities are identified. There has been no significant change since the prior study. BI/SCRN MAMM (CAD)W/ELMER BILAT IMPRESSION: Stable bilateral screening mammogram. Yearly follow-up mammogram recommended. (A) ASSESSMENT CATEGORY: BIRADS Category 1: Negative. A letter regarding these results will be sent to the patient by the facility within 30 days. Approximately 10% of breast cancers are not detected by mammography. A normal mammogram should not delay biopsy of a clinically suspicious abnormality. [id number] Electronically Signed: Gorge Welsh MD at 15:44 EDT , Service support ,
== END ==
PROVIDERS: PCP Family Medicine; Visit Provider Obstetrics & Gynecology
DX: Z12.31 Encounter for screening mammogram for malignant neoplasm of breast (principal)
CPT/HCPCS: 77063; 77067

== ENCOUNTER 2021-07-21 09:02 | Day surgery (SDC) | payer MEDICARE, OTHER, SELFPAY ==
--- NOTE | 2021-07-15 13:30 | EKG12_ITS ---
Test Reason : PREOP Blood Pressure : / mmHG Vent. Rate : 092 BPM Atrial Rate : 092 BPM P-R Int : 182 ms QRS Dur : 090 ms QT Int : 372 ms P-R-T Axes : 035 076 037 degrees QTc Int : 460 ms Normal sinus rhythm Incomplete right bundle branch block Nonspecific ST-Segment Abnormality Confirmed by ROVERTO HERMAN, MATEO ([id number]), editor managing director MARLA ALBA ([id number]) on 07/16/2021 8:51:54 AM Referred By: Eveline Bocanegra Confirmed By:MATEO LAYNE MD
[2021-07-15 14:51] LABS: Hematocrit 46.3 % (37-47); Hemoglobin 14.8 g/dL (12.0-15.0); Mean Corpuscular Hgb 31.3 pg (27.0-32.0); Mean Corpuscular Volume 97.9 fL (81-99); Mean Platelet Vol. 12.3 fl (6.2-12.0); Platelet Count 116 K/mm3 (150-450); RBC Distribution Width CV 13.1 % (11.6-14.6); RBC Distribution Width SD 46.9 fl (35.1-43.9); Red Blood Count 4.73 M/mm3 (4.2-5.4); White Blood Count 3.8 K/mm3 (4.4-11.0)
[2021-07-15 15:14] LABS: Anion Gap 5 (5-15); BUN 13 mg/dL (7-18); BUN/Creat Ratio 14.4 RATIO (10-20); Calcium,Total 8.9 mg/dL (8.5-10.1); Chloride 107 mmol/L (98-107); EST Glomerular Filtration Rate 65 mL/min (>60); Est Glom Filt Rate - Afr Amer 79 mL/min (>60); Glucose 93 mg/dL (74-106); Potassium 3.7 mmol/L (3.5-5.1); Sodium Level 143 mmol/L (136-145)
[2021-07-21] VITALS (11 sets, daily range): BP systolic 106–127; BP diastolic 65–76; PULSE 67–78; RESP 16; TEMP 35.8–36.9; O2SAT 95–100; BMI 26.2
[2021-07-21] MEDS: Vancomycin IV 1,000 MG/200 ML BAG 200 MG IV (09:42)
[2021-07-21] MEDS: Lactated Ringers 1,000 ML 100 ML IV (09:42)
--- NOTE | 2021-07-21 10:50 | RAD_ITS ---
STUDY: INTRAOPERATIVE FLUOROSCOPY TECHNIQUE: The examination was performed with referring physician in attendance. Under fluoroscopic observation, fluoroscopic images were obtained. Radiologist was not present for the study. Radiologist did not perform the procedure. This dictation is for documentation of the radiation dosage only. There is no interpretation of the images. TOTAL NUMBER OF IMAGES: 1 COMPARISON: None RADIATION DOSE: 1.8 mGy FLUOROSCOPY TIME: 6.6 seconds REASON FOR EXAM: INTERSTIM THERAPY 1 Female, 71 years old. FINDINGS: Images of the sacrum. There is a right side sided implanted electronic leads extending into the spinal canal. . RAD/Pelvis 1 or 2 Views IMPRESSION: Fluoroscopic assistance images were obtained. Dictation for documentation purposes only. Electronically Signed: Chi Rivera MD at 20:08 EST , Service support ,
--- NOTE | 2021-07-21 12:04 | PCM.DC ---
Discharge Instructions Diet Discharge Diet: No restrictions Activity Discharge Activity: May Not Shower Dressing / Incision Call your doctor if your incision/area has: Continuous Slow Oozing, Sudden Increased Bleeding, Increased Pain/ Swelling, Increased Redness, Foul Smelling Discharge and Swelling at the incision site Call your doctor if you observe: Fever of 101 or Higher, Inability to urinate, Inability to have a bowel movement and Uncontrolled pain Suture Line Care: Avoid Pulling/Pushing and Avoid Pinching/Bending Change Dressing in: do not change dressing Remove Dressing in: do not remove dressing Cleanse incision/area with: Keep Dressing Clean & Dry Follow Up Care Please Follow Up With: Eveline Bocanegra MD When: 1 week Test Results: Test results from this visit will be discussed in further detail at your follow-up appointment, if applicable. Discharge Plan Admission Attending Provider: Eveline Bocanegra Primary Care Provider: Mayo Mccormick Discharge Orders/Prescriptions Prescriptions: New hydrocodone-acetaminophen [hydrocodone-acetaminophen] 1 TABLET tablet 1 tab PO Q4H PRN PRN (Reason: Pain) 3 Days Qty: 10 RF: 0 sulfamethoxazole-trimethoprim [sulfamethoxazole-trimethoprim] 1 TABLET tablet 1 tab PO BID 3 Days Qty: 6 RF: 0 Continued bupropion HCl 300 MG tablet extended release 24 hr 300 mg PO DAILY RF: 0 atorvastatin 40 MG tablet 40 mg PO QHS RF: 0 acyclovir 400 MG tablet 400 mg PO BID RF: 0 omeprazole 40 MG capsule 40 mg PO DAILY RF: 0 multivitamin,lb-attz-txyezeat 1 TABLET tablet 1 tab PO DAILY RF: 0 Artificial Eye Lubricant 1 APPLIC ointment 1 applic EACH EYE QHS RF: 0 doxycycline hyclate 100 MG capsule 100 mg PO DAILY RF: 0 Probiotic-Digestive Enzymes 1 EACH capsule 1 ea PO DAILY RF: 0 alendronate 70 MG tablet 70 mg PO QWEEK RF: 0 hydroxychloroquine 200 MG tablet 200 mg PO DAILY RF: 0 Zyrtec 10 MG capsule 10 mg PO DAILY RF: 0 (DME) inhalational spacing device 1 EACH spacer 1 ea MC UD Qty: 1 RF: 0 Autologous Eye Drop 1 drp EACH EYE Q4H PRN PRN (Reason: Dry Eyes) RF: 0 Linzess 145 mcg capsule 145 mcg PO DAILY RF: 0 budesonide [Pulmicort] 0.5 mg/2 mL suspension for nebulization 0.5 mg INHALATION BID RF: 0 albuterol sulfate [Ventolin HFA] 90 mcg/actuation HFA aerosol inhaler 2 puff INHALATION Q6H PRN PRN (Reason: Asthma) RF: 0 fluticasone propionate 50 mcg/actuation spray,suspension 2 spray Intranasal DAILY Qty: 16 RF: 3 montelukast 10 mg tablet 10 mg PO DAILY Qty: 30 RF: 6 Referrals / Follow Up: Mayo Mccormick MD [Primary Care Provider] - Disposition Disposition (needs filled in before D/C Order can be placed): Home, Self Care
--- NOTE | 2021-07-21 12:10 | OP.PCM_ITS ---
Problems Associated Problem List Diagnoses (1) Fecal incontinence: Report of Operation Date of Procedure: 07/21/21 Pre-Operative Diagnosis: Fecal incontinence Post-Operative Diagnosis: Same Surgery/Procedure Performed:: InterStim stage I Surgeon: Eveline Bocanegra Type of Anesthesia: MAC Description of Procedure: The patient is a 71-year-old female with fecal incontinence. She has failed conservative management and now presents for InterStim trial. Informed consent was obtained. The patient was taken to the operating room and placed in a prone position on the operating room table. She is appropriately padded and secured to the table. Anesthesia monitored the head, neck, airway, IV access and vital signs throughout the case. Once anesthesia was appropriately administered, the patient was prepped and draped in usual sterile fashion. Using fluoroscopy, the sacral anatomy was outlined. The skin overlying the S3 foramen was infiltrated with lidocaine. The needle was then inserted through the S3 foramen and tested with good response of both tino and toe flexion. At this time the guidewire was passed and a skin incision was made. The dilator was then inserted followed by the lead using the curved stylette. Once good positioning of the lead was identified on fluoroscopy, the leads were tested and she had good tino and toe flexion on all 4 leads. The lead was then left in situ and the dilating sheath was removed. The pocket site was then selected and infiltrated with lidocaine. A skin incision was made followed by Bovie cautery for hemostatic control. The lead was then tunneled into this pocket site and the tunneling device was used to tunnel to a contralateral location and the other side of her back where the lead extension was connected and pulled into the pocket site. The lead was dried and placed into the lead extension and secured using the torque wrench. The excess lead extension was coiled and secured using a Prolene suture. This was then buried into the pocket site which was closed with 3-0 interrupted Vicryl, followed by 4-0 subcuticular Vicryl and skin glue. The lead insertion s ite was closed using 4-0 Vicryl followed by glue. This is the same process used at the lead extension exit point. At this time the battery was attached and this was covered with an OpSite followed by cloth tape. The patient was then awakened and taken to the recovery room in good condition. There were no complications during this procedure. Grafts/Implants Used: Interstim Lead and lead extension Complications none Admit VTE Documentation VTE Present on Admission: No VTE Mechan Device Prophylaxis: None VTE Pharm Prophylaxis ordered?: No Reason prophylaxis not ordered:: Treatment Not Indicated
[2021-07-21] MEDS: Lidocaine 1% /Epi 1:100 (50ml) 50 ML VIAL (12:17)
[2021-07-21] MEDS: HYDROcodone Bitartrate/Apap 5/325 Tablet PO (14:07)
== END 2021-07-21 14:56 | disposition home or self-care (01) ==
LOC: SDC 09:02 → AC 09:03
PROVIDERS: PCP Family Medicine; Referring Provider Urology; Visit Provider Urology
PROC: (CPT 64581; principal; 2021-07-21 10:40)
DX: R15.9 Full incontinence of feces (principal); N39.46 Mixed incontinence; K59.04 Chronic idiopathic constipation; I45.10 Unspecified right bundle-branch block; F41.9 Anxiety disorder, unspecified; J45.909 Unspecified asthma, uncomplicated; F32.A Depression, unspecified; K21.9 Gastro-esophageal reflux disease without esophagitis; E78.5 Hyperlipidemia, unspecified; D80.1 Nonfamilial hypogammaglobulinemia; D84.9 Immunodeficiency, unspecified; K63.9 Disease of intestine, unspecified; Z87.891 Personal history of nicotine dependence; Z79.899 Other long term (current) drug therapy; Z79.51 Long term (current) use of inhaled steroids; R53.82 Chronic fatigue, unspecified; E04.1 Nontoxic single thyroid nodule; G47.30 Sleep apnea, unspecified
CPT/HCPCS: 00630; 64581; 64590; 36415; 72170; 76000; 80048; 85027; 93005; J7120; J2405

== ENCOUNTER 2021-08-04 10:12 | Day surgery (SDC) | payer MEDICARE, OTHER, SELFPAY ==
[2021-08-04] VITALS (7 sets, daily range): BP systolic 92–137; BP diastolic 56–70; PULSE 73–83; RESP 16; TEMP 36–36.1; O2SAT 96–99; BMI 26.2
[2021-08-04] MEDS: Vancomycin IV 1,000 MG/200 ML BAG 200 MG IV (07:00)
[2021-08-04] MEDS: Lactated Ringers 1,000 ML 15 ML IV (10:25)
--- NOTE | 2021-08-04 11:00 | OP.PCM_ITS ---
Problems Associated Problem List Diagnoses (1) Fecal incontinence: Report of Operation Date of Procedure: 08/04/21 Pre-Operative Diagnosis: Fecal incontinence Post-Operative Diagnosis: same Surgery/Procedure Performed:: Interstim Stage 2 Surgeon: Eveline Bocanegra Type of Anesthesia: MAC Description of Procedure: The patient is an [age]-year-old female with a successful stage I InterStim for management of her fecal incontinence. She now presents for stage II InterStim. Informed consent was obtained. The patient was taken to the operating room placed on the operating room table in a prone position. She was appropriately padded and secured to the table. Anesthesia monitored the head, neck, airway, IV access and vital signs througho ut the case. Once anesthesia was appropriately administered the patient was prepped and draped in usual sterile fashion. The incision over the boot was infiltrated with local anesthetic. The incision was opened with hemostats and the sutures were cut with scissors. The boot was brought into the operative field. There is no evidence of infection. The pocket was irrigated. At this time the lead extension was removed from the lead and the field entirely. The pocket was enlarged and hemostasis was achieved with Bovie cautery. The lead was then dried and inserted into the IPG. It was secured using the torque wrench. The IPG was then placed into the pocket and impedances were tested and found to be appropriate. The incision was closed using 3-0 Vicryl interrupted sutures followed by 4-0 subcuticular suturing and Dermabond was placed on the skin. Once this was dried, the patient was awakened and taken to the recovery room in good condition. There were no complications during this procedure. Grafts/Implants Used: Interstim IPG Complications none Admit VTE Documentation VTE Present on Admission: Yes VTE Mechan Device Prophylaxis: SCD's VTE Pharm Prophylaxis ordered?: No Reason prophylaxis not ordered:: Treatment Not Indicated
--- NOTE | 2021-08-04 11:04 | PCM.DC ---
Discharge Instructions Diet Discharge Diet: No restrictions Activity Discharge Activity: May Shower May resume sexual activity in: No Restrictions Dressing / Incision Call your doctor if your incision/area has: Continuous Slow Oozing, Sudden Increased Bleeding, Increased Pain/ Swelling, Increased Redness, Foul Smelling Discharge and Swelling at the incision site Call your doctor if you observe: Fever of 101 or Higher, Inability to urinate, Inability to have a bowel movement and Uncontrolled pain Cleanse incision/area with: Soap & Water and - (do not peel skin glue off, let it fall off) Follow Up Care Please Follow Up With: Eveline Bocanegra MD When: in the office in 2-3 weeks, call for appt Test Results: Test results from this visit will be discussed in further detail at your follow-up appointment, if applicable. Discharge Plan Admission Attending Provider: Eveline Bocanegra Primary Care Provider: Mayo Mccormick Discharge Orders/Prescriptions Prescriptions: New sulfamethoxazole-trimethoprim [sulfamethoxazole-trimethoprim] 1 TABLET tablet 1 tab PO BID 3 Days Qty: 6 RF: 0 oxycodone-acetaminophen [oxycodone-acetaminophen] 1 TABLET tablet 2 tab PO Q8H PRN PRN (Reason: Pain) 7 Days Qty: 20 RF: 0 Continued bupropion HCl 300 MG tablet extended release 24 hr 300 mg PO DAILY RF: 0 atorvastatin 40 MG tablet 40 mg PO QHS RF: 0 acyclovir 400 MG tablet 400 mg PO BID RF: 0 omeprazole 40 MG capsule 40 mg PO DAILY RF: 0 multivitamin,gj-xuzz-hlfdaizf 1 TABLET tablet 1 tab PO DAILY RF: 0 Artificial Eye Lubricant 1 APPLIC ointment 1 applic EACH EYE QHS RF: 0 doxycycline hyclate 100 MG capsule 100 mg PO DAILY RF: 0 Probiotic-Digestive Enzymes 1 EACH capsule 1 ea PO DAILY RF: 0 alendronate 70 MG tablet 70 mg PO QWEEK RF: 0 hydroxychloroquine 200 MG tablet 200 mg PO DAILY RF: 0 Zyrtec 10 MG capsule 10 mg PO DAILY RF: 0 (DME) inhalational spacing device 1 EACH spacer 1 ea MC UD Qty: 1 RF: 0 Autologous Eye Drop 1 drp EACH EYE Q4H PRN PRN (Reason: Dry Eyes) RF: 0 Linzess 145 mcg capsule 145 mcg PO DAILY RF: 0 budesonide [Pulmicort] 0.5 mg/2 mL suspension for nebulization 0.5 mg INHALATION BID RF: 0 albuterol sulfate [Ventolin HFA] 90 mcg/actuation HFA aerosol inhaler 2 puff INHALATION Q6H PRN PRN (Reason: Asthma) RF: 0 hydrocodone-acetaminophen 1 TABLET tablet 1 tab PO Q4H PRN PRN (Reason: Pain) 3 Days Qty: 10 RF: 0 sulfamethoxazole-trimethoprim 1 TABLET tablet 1 tab PO BID 3 Days Qty: 6 RF: 0 fluticasone propionate 50 mcg/actuation spray,suspension 2 spray Intranasal DAILY Qty: 16 RF: 3 montelukast 10 mg tablet 10 mg PO DAILY Qty: 30 RF: 6 Referrals / Follow Up: Mayo Mccormick MD [Primary Care Provider] - Disposition Disposition (needs filled in before D/C Order can be placed): Home, Self Care
[2021-08-04] MEDS: Lidocaine 1% /Epi 1:100 (20ml) 20 ML Vial (12:10)
== END 2021-08-04 13:43 | disposition home or self-care (01) ==
LOC: SDC 10:13 → AC 10:14
PROVIDERS: PCP Family Medicine; Visit Provider Urology
PROC: (CPT 64581; principal; 2021-08-04 12:10)
DX: Z45.49 Encounter for adjustment and management of other implanted nervous system device (principal); N39.46 Mixed incontinence; K59.04 Chronic idiopathic constipation; E78.5 Hyperlipidemia, unspecified; K21.9 Gastro-esophageal reflux disease without esophagitis; F32.A Depression, unspecified; F41.9 Anxiety disorder, unspecified; M33.90 Dermatopolymyositis, unspecified, organ involvement unspecified; E07.9 Disorder of thyroid, unspecified; G47.33 Obstructive sleep apnea (adult) (pediatric); J45.909 Unspecified asthma, uncomplicated; Z78.0 Asymptomatic menopausal state; Z86.2 Personal history of diseases of the blood and blood-forming organs and certain disorders involving the immune mechanism; Z79.899 Other long term (current) drug therapy
CPT/HCPCS: 00630; 64581; 64590; J7120; C1767

== ENCOUNTER 2021-08-12 02:26 | Emergency (ER) | payer MEDICARE, OTHER, SELFPAY ==
[2021-08-12 02:28] VITALS: BP 140/87; PULSE 88; RESP 16; TEMP 36.6; O2SAT 94; BMI 27.1
[2021-08-12 02:33] VITALS: BMI 27.1
--- NOTE | 2021-08-12 02:45 | CT_ITS ---
STUDY: CT BRAIN WITHOUT CONTRAST REASON FOR EXAM: Female, 71 years old. Paresthesia RADIATION DOSAGE (If Supplied By Facility): CTDIvol = ( 44.99 ) mGy, DLP = ( 745.49 ) mGycm TECHNIQUE: Transaxial CT imaging of the brain was performed without administration of intravenous contrast material. Individualized dose optimization techniques were used for this CT. COMPARISON: Comparison is made with prior examination dated 05/31/2011. FINDINGS: Normal soft tissue structures. Normal calvarium. There is mild cerebral atrophy with widening of the extra-axial spaces and ventricular dilatation. There are areas of decreased attenuation within the white matter tracts of the supratentorial brain, consistent with microvascular disease changes. Normal basal ganglia and thalami. Normal brainstem. Normal cerebellum. There is no intracranial hemorrhage. There are no findings of an acute ischemic infarction. Normal visualized paranasal sinuses. CT/Brain/Head without Contrast IMPRESSION: Chronic involutional changes of the brain. Electronically Signed: Gorge Welsh MD at 9:17 EST , Service support ,
--- NOTE | 2021-08-12 02:45 | CT_ITS ---
STUDY: CT LUMBAR SPINE WITHOUT CONTRAST REASON FOR EXAM: Female, 71 years old. Lumbar radiculopathy RADIATION DOSAGE (If Supplied By Facility): CTDIvol = ( 23.28 ) mGy, DLP = ( 781.38 ) mGycm TECHNIQUE: The patient was scanned in a multi detector CT scanner. High resolution transaxial imaging was performed. Images were obtained from L1 to S1 vertebral level. Sagittal and coronal images were reconstructed. Individualized dose optimization techniques were used for this CT. COMPARISON: None FINDINGS: Normal lumbar lordosis. There is evidence of an S-shaped scoliosis with a dextroscoliosis of the thoracic spine and levoscoliosis of the lumbar spine. Diffuse spondylosis. L1-2: Mild degree of disc space narrowing. No significant stenosis seen. L2-3: Mild to moderate degree of disc space narrowing. Mild diffuse posterior disc bulge. No significant spinal or neural foraminal stenosis seen. L3-4: Disc space narrowing. Spondylosis. Facet joint osteoarthritis. L4-5: Disc space narrowing. No significant stenosis seen. L5-S1: Disc space narrowing. Facet joint osteoarthritis. Small hiatal hernia. CT/Spine Lumbar without Contrast IMPRESSION: Multilevel degenerative changes, as described above. Electronically Signed: Gorge Welsh MD at 10:03 EST , Service support ,
[2021-08-12 02:58] LABS: Absolute Lymphocyte Count 1.01 X10^3/uL (0.83-4.51); Absolute Neutrophil Count 2.7 X10^3/uL (2.0-7.7); Basophil# 0.07 X10^3/uL; Basophil% 1.6 % (0-1); Eosinophil# 0.17 X10^3/uL; Eosinophils% 3.8 % (0-5); Hematocrit 47.1 % (37-47); Hemoglobin 15.5 g/dL (12.0-15.0); Lymphocyte # 1.01 X10^3/ul (0.83-4.51); Lymphocyte % 22.4 % (19-41); Mean Corp Hgb Conc 32.9 g/dL (32-36); Mean Corpuscular Hgb 31.4 pg (27.0-32.0); Mean Corpuscular Volume 95.5 fL (81-99); Mean Platelet Vol. 10.9 fl (6.2-12.0); Monocyte# 0.51 X10^3/uL; Monocyte% 11.3 % (0-10); NRBC Flagged by Analyzer 0 % (0-5); Neutrophil # 2.74 X10^3/uL (2.7-7.7); Neutrophil % 60.7 % (47-70); Platelet Count 122 K/mm3 (150-450); RBC Distribution Width CV 13.6 % (11.6-14.6); RBC Distribution Width SD 48.1 fl (35.1-43.9); Red Blood Count 4.93 M/mm3 (4.2-5.4); White Blood Count 4.5 K/mm3 (4.4-11.0)
[2021-08-12 03:16] LABS: Anion Gap 6 (5-15); BUN 18 mg/dL (7-18); BUN/Creat Ratio 17.6 RATIO (10-20); Calcium,Total 9.7 mg/dL (8.5-10.1); Chloride 107 mmol/L (98-107); Creatinine, Serum 1.02 mg/dL (0.55-1.02); EST Glomerular Filtration Rate 57 mL/min (>60); Est Glom Filt Rate - Afr Amer 69 mL/min (>60); Estimated Creatinine Clearance 36.34 ml/min; Glucose 111 mg/dL (74-106); Magnesium 2.4 mg/dL (1.6-2.6); Sodium Level 142 mmol/L (136-145)
--- NOTE | 2021-08-12 03:32 | CT_ITS ---
STUDY: CTA HEAD AND NECK WITH CONTRAST REASON FOR EXAM: Female, 71 years old. Ataxia RADIATION DOSAGE (If Supplied By Facility): CTDIvol = ( 11.75 ) mGy, DLP = ( 497.41 ) mGycm TECHNIQUE: CT angiography was performed with a multi-detector CT scanner. Data acquisition was obtained from the skull base through the vertex following intravenous administration of IV 100mL [id number]-300. MIP images were reconstructed from the axial data set. Post-processing of the angiographic images was performed, with multiplanar reformation and 3D reconstruction. Individualized dose optimization techniques were used for this CT. COMPARISON: No relevant priors. FINDINGS: Normal bilateral petrous carotid arteries. There is calcified plaque formation of the right cavernous carotid artery, without a cross-sectional luminal stenosis. There is calcified plaque formation of the left cavernous carotid artery, without a cross-sectional luminal stenosis. Normal right A1 segments of the anterior cerebral artery. Normal left A1 segments of the anterior cerebral artery. Normal intact anterior communicating artery (ACOM). Normal bilateral A2 segments of the anterior cerebral arteries. Normal right M1 and M2 segments of the middle cerebral arteries, with a normal M1 bifurcation. Normal left M1 and M2 segments of the middle cerebral arteries, with a normal M1 bifurcation. Normal right posterior communicating artery (PCOM). Normal left posterior communicating artery (PCOM). Normal bilateral vertebral arteries. Normal basilar artery with a normal basilar bifurcation. The visualized bilateral superior cerebellar (SCA) arteries are normal. Normal bilateral P1, P2 and visualized P3 segments of the posterior cerebral arteries. There is no demonstrated aneurysm of the [place] of [place]. AORTIC ARCH: There is atherosclerotic calcific plaque formation of the aortic arch and great vessels arising from the aortic arch, without a hemodynamically significant stenosis. There is a normal origin of the brachiocephalic, left common carotid, and left subclavian arteries. RIGHT CAROTID ARTERIES: Normal right common carotid artery (CCA). Normal right common carotid bulb. Normal origin of the right internal carotid (ICA) artery without a hemodynamically significant stenosis. Normal visualized cervical portion of the right internal carotid artery. Normal origin of the right external carotid artery (ECA). LEFT CAROTID ARTERIES: Normal left common carotid artery (CCA). Normal left common carotid bulb. There is moderate atherosclerotic plaque formation of the origin of the left internal carotid artery with an estimated stenosis of 50-69% stenosis. Normal visualized cervical portion of the left internal carotid artery. Normal origin of the left external carotid artery (ECA). VERTEBRAL ARTERIES: Normal bilateral vertebral arteries. CT/CTA Head AND Neck W/ Contrast IMPRESSION: 70% narrowing at the origin of the left internal carotid artery. Electronically Signed: Gorge Welsh MD at 10:00 EST , Service support ,
[2021-08-12 05:12] VITALS: BP 118/69; PULSE 88; RESP 15; O2SAT 96
--- NOTE | 2021-08-12 05:41 | EDS_ITS ---
HPI History of Present Illness Chief Complaint: Neuro S/Sx Narrative Narrative: Patient states that she got up to use the bathroom and noticed that she had some tingling in the right arm and leg. She states that she laid in bed for awhile and those symptoms started to improve but then she stood up and noticed pain in her left leg and felt unsteady on her feet. Secondary to this she called EMS and presents for evaluation [facility] Medical History Anemia Anxiety Arthritis Asthma Back pain Chronic bronchitis Chronic cough Chronic fatigue syndrome CPAP (continuous positive airway pressure) dependence Curvature of spine Depression Dermatomyositis Dietary restriction Dyspepsia Dyspnea Fecal incontinence Former smoker Gastric reflux GERD (gastroesophageal reflux disease) Herpes simplex History of echocardiogram History of IBS History of irregular heartbeat History of stress test Hoarseness Hx of uterine prolapse Hyperlipidemia Hypogammaglobulinemia Immunodeficiency Insomnia Other pancytopenia Post-menopausal Seasonal allergies Sleep apnea Thyroid disease Tremor of both hands Wears dentures Wears glasses Home Medications Artificial Eye Lubricant 1 applic EACH EYE QHS 06/29/13 [History Last Taken Unknown] acyclovir 400 mg PO BID 06/29/13 [History Last Taken Unknown] atorvastatin 40 mg PO QHS 06/29/13 [History Last Taken Unknown] bupropion HCl 300 mg PO DAILY 06/29/13 [History Last Taken Unknown] multivitamin,ih-cyhl-mwbxtbze 1 tab PO DAILY 06/29/13 [History Last Taken Unknown] omeprazole 40 mg PO DAILY 06/29/13 [History Last Taken 08/04/21] Probiotic-Digestive Enzymes 1 ea PO DAILY 02/11/15 [History Last Taken Unknown] doxycycline hyclate 100 mg PO DAILY 02/11/15 [History Last Taken Unknown] Zyrtec 10 mg PO DAILY 11/11/15 [History Last Taken Unknown] alendronate 70 mg PO QWEEK 11/11/15 [History Last Taken Unknown] hydroxychloroquine 200 mg PO DAILY 11/11/15 [History Last Taken Unknown] inhalational spacing device #1 spacer 02/07/18 [Rx Last Taken Unknown] fluticasone propionate 50 mcg/actuation nasal spray,suspension 2 spray INTRANASAL DAILY #16 g 07/28/18 [Rx Last Taken Unknown] montelukast 10 mg tablet 10 mg PO DAILY #30 tab 06/30/21 [Rx Last Taken Unknown] Autologous Eye Drop 1 drp EACH EYE Q4H PRN PRN 07/15/21 [History Last Taken Unknown] Linzess 145 mcg PO DAILY 07/15/21 [History Last Taken Unknown] albuterol sulfate [Ventolin HFA] 2 puff INHALATION Q6H PRN PRN 07/15/21 [History Last Taken Unknown] budesonide [Pulmicort] 0.5 mg INHALATION BID 07/15/21 [History Last Taken Unknown] hydrocodone-acetaminophen 1 tab PO Q4H PRN PRN 3 Days #10 tablet 07/21/21 [Rx Last Taken Unknown] sulfamethoxazole-trimethoprim 1 tab PO BID 3 Days #6 tablet 07/21/21 [Rx Last Taken Unknown] oxycodone-acetaminophen 2 tab PO Q8H PRN PRN 7 Days #20 tab 08/04/21 [Rx Last Taken Unknown] sulfamethoxazole-trimethoprim 1 tab PO BID 3 Days #6 tablet 08/04/21 [Rx Last Taken Unknown] Allergy/AdvReac Type Severity Reaction Status Date / Time dextromethorphan Allergy Intermediate Unknown Verified 08/04/21 10:52 [From Delsym Cough-Chest Congest DM] guaifenesin Allergy Intermediate Unknown Verified 08/04/21 10:52 [From Delsym Cough-Chest Congest DM] Penicillins Allergy Shortness Verified 08/04/21 10:52 of breath codeine AdvReac Vomiting Verified 08/04/21 10:52 Family History Mother Heart disease Diabetes Father Parkinson disease Surgical History H/O oophorectomy History of cardiac catheterization History of dental surgery History of hysterectomy History of rotator cuff surgery History of tonsillectomy Hx of skin graft Vaginal prolapse Social History (Updated 05/15/21 @ 10:00 by Saira Covarrubias) Smoking Status: Former smoker Tobacco: How many years used: 5 how long ago did patient quit smokin, second hand exposure: No alcohol intake: never substance use type: does not use caffeine: Yes seatbelt use: always do you feel safe at home: Yes additional social history: -Yasir ROS ROS ED Constitutional Constitutional ED: Denies chills or fever(s) ENT ENT ED: Denies sore throat Cardiovascular Cardiovascular: Denies chest pain Respiratory/Chest Respiratory/Chest: Denies cough or dyspnea Gastrointestinal Gastrointestinal: Denies abdominal pain, diarrhea, nausea or vomiting Genitourinary Genitourinary ED: Denies dysuria Musculoskeletal Musculoskeletal: Reports back pain; Denies myalgias Integumentary Denies rash Neurologic Neurologic: Reports paresthesias and weakness; Denies headache(s) EXAM Physical Exam Const Vital Signs: 08/12/21 02:28 08/12/21 05:12 Temperature 97.8 F Temperature Source Oral Pulse Rate 88 88 Respiratory Rate 16 15 Blood Pressure 140/87 H 118/69 Blood Pressure Mean 104 85 Pulse Ox 94 96 Oxygen Delivery Method Room Air Room Air Positive well nourished and well developed General Appearance ED: well developed HEENT Reports moist mucous membranes Eyes PERRL and EOMs intact bilaterally Neck supple Resp normal respiratory effort and clear to auscultation bilaterally Cardio regular rate and regular rhythm Rate: other Other Details: radial pulses are +2/4 B/L GI normal to inspection, nondistended, normoactive bowel sounds, non-tender, non- distended and no masses GI Narrative: No pulsatile mass Auscultation: normoactive bowel sounds Palpation: soft Back/Spine Back/Spine Narrative: No stepoff or deformity of the thoracic or lumbar spine. No saddle anesthesia. Negative clonus and babinski. + straight leg raise on left Extremity normal to inspection Neuro oriented x3 and CN's II-XII intact bilaterally Neuro Narrative: Patient has faint weakness of the left leg compared to right but there is pain with motion and I feel this slight weakness is related to the pain and not true focal weakness. No pronator drift. No truncal ataxia. No nystagmus noted. NIH stroke scale score of 0 Sensorium / Orientation: alert Psych mental status grossly normal Skin no rashes or lesions noted MDM MDM MDM Narrative Medical decision making narrative: Pt presented to the ER awake and alert with no focal deficits and therefore I felt no need to activate a stroke alert. With her paresthesia I elected to perform a non contrast head CT but also a lumbar CT with concern for radiculopathy. I then witnessed the patient ambulate and she was unsteady on her feet with mild sway so I sent her for a CTA. Her blood work displayed no acute findings. Her neuro exam remained normal with an NIH of 0 but she still had sway with ambulation. the patient reported that she did not want to wait in the ER any longer for the results of her scans. As she still has an unsteady gait and I do not have offical CT reports she will sign out against medical advice Lab Data Attestation: I reviewed the patient's lab results. Labs: Laboratory Results - last 24 hr 08/12/21 08/12/21 02:50 02:50 WBC 4.5 RBC 4.93 Hgb 15.5 H Hct 47.1 H MCV 95.5 MCH 31.4 MCHC 32.9 RDW Std Deviation 48.1 H RDW Coeff of Lexis 13.6 Plt Count 122 L MPV 10.9 Immature Gran % (Auto) 0.200 Neut % (Auto) 60.7 Lymph % (Auto) 22.4 Carson % (Auto) 11.3 H Eos % (Auto) 3.8 Baso % (Auto) 1.6 H Absolute Neuts (auto) 2.7 Absolute Lymphs (auto) 1.01 Nucleated RBC % 0 Sodium 142 Potassium 4.0 Chloride 107 Carbon Dioxide 29.0 Anion Gap 6 BUN 18 Creatinine 1.02 Estim Creat Clear Calc 36.34 Est GFR (MDRD) Af Amer 69 Est GFR (MDRD) Non-Af 57 L BUN/Creatinine Ratio 17.6 Glucose 111 H Calcium 9.7 Magnesium 2.4 Discharge Plan Triage Chief Complaint: Neuro S/Sx ED Provider: Jordan Najera Dx/Rx/DC Orders Clinical Impression: Paresthesia, Dizziness, Low back pain Instructions: Dizziness Balance Probs Fainting, ED Paraesthesias Prescriptions: No Action bupropion HCl 300 MG tablet extended release 24 hr 300 mg PO DAILY RF: 0 atorvastatin 40 MG tablet 40 mg PO QHS RF: 0 acyclovir 400 MG tablet 400 mg PO BID RF: 0 omeprazole 40 MG capsule 40 mg PO DAILY RF: 0 multivitamin,hv-qewm-tgypjyyh 1 TABLET tablet 1 tab PO DAILY RF: 0 Artificial Eye Lubricant 1 APPLIC ointment 1 applic EACH EYE QHS RF: 0 doxycycline hyclate 100 MG capsule 100 mg PO DAILY RF: 0 Probiotic-Digestive Enzymes 1 EACH capsule 1 ea PO DAILY RF: 0 alendronate 70 MG tablet 70 mg PO QWEEK RF: 0 hydroxychloroquine 200 MG tablet 200 mg PO DAILY RF: 0 Zyrtec 10 MG capsule 10 mg PO DAILY RF: 0 (DME) inhalational spacing device 1 EACH spacer 1 ea MC UD Qty: 1 RF: 0 Autologous Eye Drop 1 drp EACH EYE Q4H PRN PRN (Reason: Dry Eyes) RF: 0 Linzess 145 mcg capsule 145 mcg PO DAILY RF: 0 budesonide [Pulmicort] 0.5 mg/2 mL suspension for nebulization 0.5 mg INHALATION BID RF: 0 albuterol sulfate [Ventolin HFA] 90 mcg/actuation HFA aerosol inhaler 2 puff INHALATION Q6H PRN PRN (Reason: Asthma) RF: 0 hydrocodone-acetaminophen 1 TABLET tablet 1 tab PO Q4H PRN PRN (Reason: Pain) 3 Days Qty: 10 RF: 0 sulfamethoxazole-trimethoprim 1 TABLET tablet 1 tab PO BID 3 Days Qty: 6 RF: 0 sulfamethoxazole-trimethoprim [sulfamethoxazole-trimethoprim] 1 TABLET tablet 1 tab PO BID 3 Days Qty: 6 RF: 0 oxycodone-acetaminophen [oxycodone-acetaminophen] 1 TABLET tablet 2 tab PO Q8H PRN PRN (Reason: Pain) 7 Days Qty: 20 RF: 0 fluticasone propionate 50 mcg/actuation spray,suspension 2 spray Intranasal DAILY Qty: 16 RF: 3 montelukast 10 mg tablet 10 mg PO DAILY Qty: 30 RF: 6 Primary Care Provider: Mayo Mccormick Referrals: Mayo Mccormick MD [Primary Care Provider] - Activity Restrictions/Additional Instructions: Please return to the ED if you have any further concerns Disposition Disposition: Against Medical Advice
--- NOTE | 2021-08-12 05:59 | ED.RN ---
PT completed AMA paperwork as she doesn't want to wait for her ct results. AMA form completed, a copy was given to patient as well as discharge instructions and follow up care. All questions were answered, no further concerns.
[2021-08-12 06:00] VITALS: BP 105/75; PULSE 84; RESP 13; O2SAT 96
== END 2021-08-12 06:03 | disposition left against medical advice (07) ==
PROVIDERS: Emergency Provider Emergency Medicine; PCP Family Medicine
DX: R20.2 Paresthesia of skin (principal); R42 Dizziness and giddiness; M54.50 Low back pain, unspecified; G47.30 Sleep apnea, unspecified; Z87.891 Personal history of nicotine dependence
CPT/HCPCS: 70450; 70496; 70498; 72131; 80048; 83735; 85025; 99284; Q9967; A4216

== ENCOUNTER → 2021-08-15 09:53 | Outpatient (CLI) | payer MEDICARE, OTHER, SELFPAY ==
[2021-08-15 12:14] LABS: ALB/GLOB Ratio 1.1 RATIO (0.9-2.4); AST(SGOT) 21 U/L (15-37); Alanine Aminotransfer ALT/SGPT 33 U/L (13-56); Albumin, Serum 3.8 g/dL (3.2-5.0); Alkaline Phosphatase 79 U/L (45-117); Anion Gap 6 (5-15); BUN 16 mg/dL (7-18); BUN/Creat Ratio 17.9 RATIO (10-20); Calcium,Total 9.4 mg/dL (8.5-10.1); Chloride 109 mmol/L (98-107); Cholesterol 137 mg/dL (200); Creatinine, Serum 0.89 mg/dL (0.55-1.02); EST Glomerular Filtration Rate 66 mL/min (>60); Est Glom Filt Rate - Afr Amer 80 mL/min (>60); Globulin 3.4 g/dL (2.2-4.2); Glucose 85 mg/dL (74-106); High Density Lipoprotein 69 mg/dL; Potassium 3.9 mmol/L (3.5-5.1); Protein, Total 7.2 g/dL (6.4-8.2); Sodium Level 145 mmol/L (136-145); Triglycerides 56 mg/dL; Very Low Density Lipoprotein 11 mg/dL (5-40)
== END ==
PROVIDERS: PCP Family Medicine; Referring Provider Family Medicine; Visit Provider Family Medicine
DX: E78.5 Hyperlipidemia, unspecified (principal)
CPT/HCPCS: 36415; 80053; 80061

== ENCOUNTER → 2021-08-29 08:52 | Outpatient (CLI) | payer MEDICARE, OTHER, SELFPAY ==
--- NOTE | 2021-08-29 08:55 | CDU_ITS ---
Reason For Study: STENOSIS Rt. Velocities/BP Lt. Velocities/BP Prox CCA 103.8/12.5 cm/sec. Prox CCA 83.1/13.8 cm/sec. Mid CCA 63.4/12.5 cm/sec. Mid CCA 61.7/13.9 cm/sec. Dist CCA 58.2/19.0 cm/sec. Dist CCA 46.6/12.6 cm/sec. Prox ICA 42.4/14.5 cm/sec. Prox ICA 68.3/24.8 cm/sec. Mid ICA 56.4/19.7 cm/sec. Mid ICA 51.3/17.3 cm/sec. Dist ICA 78.8/30.8 cm/sec. Dist ICA 74.0/23.0 cm/sec. Rt. ICA/CCA = 1.2. Lt. ICA/CCA = 1.2. Prox ECA 45.9/6.6 cm/sec. Prox ECA 66.4/9.7 cm/sec. Rt. Vert. 48.2/9.9 cm/sec. Lt. Vert. 38.9/11.9 cm/sec. Right Extracranial There is heterogeneous, smooth atherosclerotic plaque noted in the right common carotid artery. There is heterogeneous, irregular atherosclerotic plaque noted in the right internal carotid artery. There is heterogeneous, irregular atherosclerotic plaque noted in the right external carotid artery. Antegrade flow is noted in the right vertebral artery. There is homogeneous, smooth atherosclerotic plaque noted in the right bulb. Left Extracranial There is intimal thickening but no significant atherosclerotic plaque noted in the left common carotid artery. The atherosclerotic plaque causes acoustic shadowing. There is heterogeneous, irregular atherosclerotic plaque noted in the left internal carotid artery. There is no significant atherosclerotic plaque noted in the left external carotid artery. Antegrade flow is noted in the left vertebral artery. There is heterogeneous, irregular atherosclerotic plaque noted in the left bulb. Procedure Carotid Duplex [id number]. Exam performed in department. VL/Carotid Duplex Ultrasound Interpretation Summary Minimal calcific plaque at the proximal right internal carotid artery with less than 50% stenosis Less than 50% stenosis right external carotid Irregular calcific plaque with shadowing at the proximal left internal carotid with less than 50% stenosis Less than 50% stenosis left external carotid Patent and antegrade vertebrals bilaterally No change from the previous examination of May 10, 2015 Ordering Physician: Igor Perez Referring Physician: MATEO BISHOP Performed By: Myesha Lee, JOY, RVT
== END ==
PROVIDERS: PCP Family Medicine; Referring Provider Surgery; Visit Provider Surgery
DX: R20.2 Paresthesia of skin (principal)
CPT/HCPCS: 93880

== ENCOUNTER 2021-09-19 09:20 | Outpatient (CLI) | payer MEDICARE, OTHER, SELFPAY ==
[2021-09-19 12:44] LABS: Absolute Lymphocyte Count 0.83 X10^3/uL (0.83-4.51); Absolute Neutrophil Count 3.2 X10^3/uL (2.0-7.7); Basophil# 0.06 X10^3/uL; Basophil% 1.3 % (0-1); Eosinophil# 0.21 X10^3/uL; Eosinophils% 4.5 % (0-5); Hemoglobin 14.8 g/dL (12.0-15.0); Lymphocyte # 0.83 X10^3/ul (0.83-4.51); Lymphocyte % 17.6 % (19-41); Mean Corp Hgb Conc 32.2 g/dL (32-36); Mean Corpuscular Hgb 31.3 pg (27.0-32.0); Mean Corpuscular Volume 97.3 fL (81-99); Mean Platelet Vol. 12.6 fl (6.2-12.0); Monocyte# 0.41 X10^3/uL; Monocyte% 8.7 % (0-10); NRBC Flagged by Analyzer 0 % (0-5); Neutrophil # 3.19 X10^3/uL (2.7-7.7); Neutrophil % 67.7 % (47-70); Platelet Count 116 K/mm3 (150-450); RBC Distribution Width CV 13.3 % (11.6-14.6); RBC Distribution Width SD 47.9 fl (35.1-43.9); Red Blood Count 4.73 M/mm3 (4.2-5.4); White Blood Count 4.7 K/mm3 (4.4-11.0)
[2021-09-19 13:29] LABS: CPK Total, Creatine Kinase 66 U/L (26-192)
== END 2021-09-19 23:59 | disposition short-term general hospital (02) ==
PROVIDERS: PCP Family Medicine; Referring Provider Internal Medicine Rheumatology; Visit Provider Internal Medicine Rheumatology
DX: M33.90 Dermatopolymyositis, unspecified, organ involvement unspecified (principal); N39.0 Urinary tract infection, site not specified; D72.819 Decreased white blood cell count, unspecified
CPT/HCPCS: 36415; 82550; 85025; 87077; 87086; 87088; 87186

== ENCOUNTER 2021-10-22 10:49 | Outpatient (CLI) | payer MEDICARE, OTHER, SELFPAY | END 2021-10-22 23:59 | disposition home or self-care (01) | LOC: LAB 10:52 | PROVIDERS: PCP Family Medicine; Referring Provider Ophthalmology; Visit Provider Ophthalmology | DX: Z00.00 Encounter for general adult medical examination without abnormal findings (principal) | CPT/HCPCS: 36415 ==

== ENCOUNTER 2021-11-03 17:29 | Outpatient (CLI) | payer MEDICARE, OTHER, SELFPAY | END 2021-11-03 23:59 | disposition home or self-care (01) | PROVIDERS: PCP Family Medicine; Visit Provider Family Medicine | DX: Z20.822 Contact with and (suspected) exposure to COVID-19 (principal) | CPT/HCPCS: 87635; U0003; U0005 ==

== ENCOUNTER 2021-12-02 12:42 | Outpatient (CLI) | payer MEDICARE, OTHER, SELFPAY ==
--- NOTE | 2021-12-04 09:52 | BD_ITS ---
STUDY: DUAL ENERGY X-RAY ABSORPTIOMETRY / DXA REASON FOR EXAM: Female, 71 years old. M810. The patient is postmenopausal. TECHNIQUE: Bone Mineral Density (BMD) measurements of lumbar spine and bilateral hips were obtained. COMPARISON: Comparison is made with prior study dated 11/14/2019. FINDINGS: Lumbar Spine (L1-L4): g/cm2 (0.779) / T-score (-2.5) / Z-score (-0.3) Findings are suggestive of osteopenia with a high fracture risk. Left Femur Total: g/cm2 (0.654) / T-score (-2.4) / Z-score (-0.8) Left Femoral Neck: g/cm2 (0.500) / T-score (-3.1) / Z-score (-1.3) Right Femur Total: g/cm2 (0.716) / T-score (-1.9) / Z-score (-0.3) Right Femoral Neck: g/cm2 (0.566) / T-score (-2.6) / Z-score (-0.7) The T-Scores on the most recent prior examination were: Lumbar Spine (L1-L4): There has been worsening of bone density since the previous examination. Left Femur Total: which represents a worsening of 3.1%. Right Femur Total: which represents an improvement of 1.4%. BD/Dexa Bone Density Study IMPRESSION: The patient is considered osteoporotic as outlined below according to World Curly Organization (WHO) criteria with a high fracture risk. There has been worsening of bone density since the previous examination. Reference Information: The T-score is the number of standard deviations above or below the standard which is normal for young adults at their peak bone mineral density. The World Health Organization (WHO) interprets the T-scores as follows: Above -1 Normal bone density Between -1 and -2.5 Osteopenia Equal to / or below -2.5 Osteoporosis As a practical clinical guideline, osteopenia may be graded as follows: Mild -1 through -1.5 Moderate -1.6 through -2.0 Severe -2.1 through -2.4 The Z-score is the number of standard deviations above or below age-matched controls. A Z-score of less than -1.5 would be considered abnormal. References: 1. NIH Osteoporosis and Related Bone Diseases www osteo.org 2. International Society for Clinical Densitometry www iscd.org 3. National Osteoporosis Foundation www nof.org Electronically Signed: Gorge Welsh MD at 15:22 EDT ,
== END 2021-12-02 23:59 | disposition home or self-care (01) ==
LOC: OPBD 12:43
PROVIDERS: PCP Family Medicine; Visit Provider Internal Medicine Rheumatology
DX: M81.0 Age-related osteoporosis without current pathological fracture (principal)
CPT/HCPCS: 77080

== ENCOUNTER → 2022-01-08 | Outpatient (CLI) | payer MEDICARE, OTHER, SELFPAY | END | disposition home or self-care (01) | PROVIDERS: PCP Family Medicine; Referring Provider Family Medicine; Visit Provider Family Medicine | DX: R30.0 Dysuria (principal) | CPT/HCPCS: 87086; 87088 ==

== ENCOUNTER → 2022-01-22 | Outpatient (CLI) | payer MEDICARE, OTHER, SELFPAY ==
--- NOTE | 2022-01-22 12:23 | US_ITS ---
STUDY: RENAL ULTRASOUND - COMPLETE REASON FOR EXAM: Female, 71 years old. UTI TECHNIQUE: Ultrasound evaluation of the kidneys was performed with real-time and static arthur-scale imaging. COMPARISON: None. FINDINGS: RIGHT KIDNEY: Normal location of the right kidney, which is normal in size. The right kidney measures 10.4 cm x 5.5 cm x 5.8 cm. There is a normal cortex of the right kidney. The renal cortex measures 1.3 cm. There is no right renal mass or cyst. There are no right renal calculi. There is no right hydronephrosis. DISTAL RIGHT URETER: There is non-visualization of the distal right ureter. There is no demonstrated right ureterovesical junction calculus. There is no demonstrated right ureteral jet. LEFT KIDNEY: Normal location of the left kidney, which is normal in size. The left kidney measures 9.3 cm x 4.2 cm x 3.7 cm. There is a normal cortex of the left kidney. The renal cortex measures 1.0 cm. There is a 1.2 cm x 1 cm x 0.9 cm cyst. There are no left renal calculi. There is no left hydronephrosis. DISTAL LEFT URETER: There is non-visualization of the distal left ureter. There is no demonstrated left ureterovesical junction calculus. There is no demonstrated left ureteral jet. BLADDER: The distended urinary bladder has a volume of 325 ml. There is a normal wall thickness of the distended urinary bladder. There is no demonstrated mass within the urinary bladder. There are no demonstrated bladder calculi. US/Kidney and Bladder IMPRESSION: 1.2 cm x 1 cm x 0.9 cm left renal cyst. Electronically Signed: Gorge Welsh MD at 14:22 EDT ,
== END | disposition home or self-care (01) ==
LOC: US 12:22
PROVIDERS: PCP Family Medicine; Referring Provider Urology; Visit Provider Urology
DX: N39.0 Urinary tract infection, site not specified (principal)
CPT/HCPCS: 76770

== ENCOUNTER → 2022-04-08 | Outpatient (CLI) | payer MEDICARE, OTHER, SELFPAY ==
[2022-04-08 15:53] LABS: CPK Total, Creatine Kinase 67 U/L (26-192)
== END | disposition home or self-care (01) ==
LOC: MTLAB 13:03
PROVIDERS: PCP Family Medicine; Referring Provider Internal Medicine Rheumatology; Visit Provider Internal Medicine Rheumatology
DX: M33.90 Dermatopolymyositis, unspecified, organ involvement unspecified (principal)
CPT/HCPCS: 36415; 82550

== ENCOUNTER → 2022-04-22 | Outpatient (CLI) | payer MEDICARE, OTHER, SELFPAY ==
--- NOTE | 2022-04-22 12:28 | RAD_ITS ---
STUDY: X-RAY - ABDOMEN/PELVIS REASON FOR EXAM: Female, 72 years old. Constipation TECHNIQUE: Two AP supine views of the abdomen and pelvis. COMPARISON: CT abdomen and pelvis November 12, 2015 FINDINGS: Normal visualized lung bases. There is a gassy appearance of the colon with a moderate amount of stool. There is no demonstrated free abdominal air. Liver spanning kidneys are mostly obscured on this study. Normal soft tissue structures. There is levoscoliosis of the lumbar spine centered at the level of T12-L1. There is a right-sided baclofen-type pump. Phleboliths are seen in the pelvis. There is multilevel degenerative change. RAD/Abdomen Single View IMPRESSION: Mild to moderate constipation. Right-sided baclofen pump Levoscoliosis. Electronically Signed: Danielle Del Castillo MD at 8:07 EDT ,
[2022-04-22 12:35] LABS: Erythrocyte Sedimentation Rate 10 mm/hr (0-30)
[2022-04-22 12:40] LABS: Absolute Lymphocyte Count 0.66 X10^3/uL (0.83-4.51); Absolute Neutrophil Count 2.1 X10^3/uL (2.0-7.7); Basophil# 0.06 X10^3/uL; Basophil% 1.9 % (0-1); Eosinophil# 0.09 X10^3/uL; Eosinophils% 2.8 % (0-5); Hematocrit 48.3 % (37-47); Hemoglobin 15.2 g/dL (12.0-15.0); Lymphocyte # 0.66 X10^3/ul (0.83-4.51); Lymphocyte % 20.8 % (19-41); Mean Corp Hgb Conc 31.5 g/dL (32-36); Mean Corpuscular Hgb 30.6 pg (27.0-32.0); Mean Corpuscular Volume 97.4 fL (81-99); Monocyte# 0.27 X10^3/uL; Monocyte% 8.5 % (0-10); NRBC Flagged by Analyzer 0 % (0-5); Neutrophil # 2.08 X10^3/uL (2.7-7.7); Neutrophil % 65.4 % (47-70); Platelet Count 103 K/mm3 (150-450); RBC Distribution Width CV 13.6 % (11.6-14.6); RBC Distribution Width SD 49.1 fl (35.1-43.9); Red Blood Count 4.96 M/mm3 (4.2-5.4); White Blood Count 3.2 K/mm3 (4.4-11.0)
[2022-04-22 12:59] LABS: ALB/GLOB Ratio 1.1 RATIO (0.9-2.4); AST(SGOT) 28 U/L (15-37); Alanine Aminotransfer ALT/SGPT 40 U/L (13-56); Albumin, Serum 3.9 g/dL (3.2-5.0); Alkaline Phosphatase 81 U/L (45-117); Anion Gap 2 (5-15); BUN 14 mg/dL (7-18); BUN/Creat Ratio 16.1 RATIO (10-20); CRP < 2.90 mg/L (0.0-3.0); Calcium,Total 9.6 mg/dL (8.5-10.1); Chloride 107 mmol/L (98-107); Creatinine, Serum 0.87 mg/dL (0.55-1.02); EST Glomerular Filtration Rate 68 mL/min (>60); Est Glom Filt Rate - Afr Amer 83 mL/min (>60); Globulin 3.5 g/dL (2.2-4.2); Glucose 87 mg/dL (74-106); LDH 225 U/L (84-246); Potassium 4.2 mmol/L (3.5-5.1); Protein, Total 7.4 g/dL (6.4-8.2); Sodium Level 141 mmol/L (136-145)
[2022-04-23 14:09] LABS: Anti-Centromere B Ab <0.2 AI (0.0-0.9); Anti-Chromatin 0.2 AI (0.0-0.9); Anti-Jo <0.2 AI (0.0-0.9); Anti-Scleroderma-70 AB <0.2 AI (0.0-0.9); RNP Ab <0.2 AI (0.0-0.9); SJOGREN'S Anti-SS-A test < 0.2 AI (0.0-0.9); SJOGREN'S Anti-SS-B test < 0.2 AI (0.0-0.9); Smith Ab <0.2 AI (0.0-0.9)
[2022-04-23 15:08] LABS: Endomysial Antibody IgA Negative (Negative)
[2022-04-23 16:36] LABS: Anti-dsDNA Ab <1 IU/mL (0-9)
[2022-04-23 16:43] LABS: Immunoglobulin A 239 mg/dL (64-422); t-Transglutaminase IgA <2 U/mL (0-3)
[2022-04-27 12:08] LABS: Alpha-1-Globulins 0.3 g/dL (0.0-0.4); Alpha-2-Globulins 0.8 g/dL (0.4-1.0); Cytoplasmic Ab (C-ANCA) <1:20 titer (Neg:<1:20); Gamma Globulin 0.7 g/dL (0.4-1.8); Immunoglobulin A 231 mg/dL (64-422); Immunoglobulin E < 2 IU/mL (6-495); Immunoglobulin G 737 mg/dL (586-1602); Immunoglobulin M 71 mg/dL (26-217); PROEL- TOTAL PROTEIN 6.9 g/dL (6.0-8.5)
[2022-04-27 17:06] LABS: Perinuclear Ab (P-ANCA) <1:20 titer (Neg:<1:20)
== END | disposition home or self-care (01) ==
LOC: LAB 12:04
PROVIDERS: PCP Family Medicine; Visit Provider Nurse Practitioner Adult Health
DX: R19.7 Diarrhea, unspecified (principal); K59.00 Constipation, unspecified; K58.9 Irritable bowel syndrome, unspecified
CPT/HCPCS: 36415; 74018; 80053; 82784; 82785; 83516; 83615; 84165; 85025; 85652; 86140; 86225; 86235; 86255; 86256; 86334

== ENCOUNTER → 2022-04-23 | Outpatient (CLI) | payer MEDICARE, OTHER, SELFPAY ==
[2022-04-26 20:17] LABS: Calprotectin, Stool 60 ug/g (0-120)
[2022-04-29 15:33] LABS: Pancreatic Elastase, Fecal 164 (>200)
== END | disposition home or self-care (01) ==
LOC: LABSPEC 12:36
PROVIDERS: PCP Family Medicine; Visit Provider Nurse Practitioner Adult Health
DX: R19.7 Diarrhea, unspecified (principal); K58.9 Irritable bowel syndrome, unspecified
CPT/HCPCS: 82653; 83630; 83993; 87177; 87209; 87493; 87506

== ENCOUNTER → 2022-04-24 | Outpatient (CLI) | payer MEDICARE, OTHER, SELFPAY | END | disposition home or self-care (01) | LOC: LAB 09:54 | PROVIDERS: PCP Family Medicine; Visit Provider Ophthalmology | DX: Z79.899 Other long term (current) drug therapy (principal) | CPT/HCPCS: 36415 ==

== ENCOUNTER → 2022-04-27 | Outpatient (CLI) | payer MEDICARE, OTHER, SELFPAY ==
[2022-04-27 15:11] LABS: Absolute Lymphocyte Count 1.03 X10^3/uL (0.83-4.51); Absolute Neutrophil Count 2.6 X10^3/uL (2.0-7.7); Basophil# 0.06 X10^3/uL; Basophil% 1.4 % (0-1); Eosinophils% 2.4 % (0-5); Hemoglobin 14.2 g/dL (12.0-15.0); Lymphocyte # 1.03 X10^3/ul (0.83-4.51); Lymphocyte % 24.6 % (19-41); Mean Corp Hgb Conc 31.6 g/dL (32-36); Mean Corpuscular Volume 98.3 fL (81-99); Mean Platelet Vol. 12.7 fl (6.2-12.0); Monocyte# 0.44 X10^3/uL; Monocyte% 10.5 % (0-10); NRBC Flagged by Analyzer 0 % (0-5); Neutrophil # 2.55 X10^3/uL (2.7-7.7); Neutrophil % 60.9 % (47-70); Platelet Count 117 K/mm3 (150-450); RBC Distribution Width CV 13.5 % (11.6-14.6); RBC Distribution Width SD 48.7 fl (35.1-43.9); Red Blood Count 4.58 M/mm3 (4.2-5.4); White Blood Count 4.2 K/mm3 (4.4-11.0)
[2022-04-27 16:16] LABS: Thyroid Stim Hormone (TSH) 4.26 uIU/mL (0.358-3.74)
== END | disposition home or self-care (01) ==
LOC: MFPLAB 14:05
PROVIDERS: PCP Family Medicine; Referring Provider Family Medicine; Visit Provider Family Medicine
DX: D72.819 Decreased white blood cell count, unspecified (principal); R53.83 Other fatigue
CPT/HCPCS: 36415; 84443; 85025

== ENCOUNTER → 2022-04-29 | Outpatient (CLI) | payer MEDICARE, OTHER, SELFPAY ==
--- NOTE | 2022-04-29 14:54 | CT_ITS ---
STUDY: CT ABDOMEN AND PELVIS WITH CONTRAST REASON FOR EXAM: Female, 72 years old. abd pain, change bowel function -- oral and iv RADIATION DOSAGE (If Supplied By Facility): CTDIvol = ( 15.69 ) mGy, DLP = ( 697.68 ) mGycm TECHNIQUE: Transaxial images were obtained from the dome of the diaphragm to the symphysis pubis without oral contrast. Oral and amp;amp; IV Readi-CAT and amp;amp; 100mL Isovue-300 was administered. Sagittal and coronal images were reconstructed. Individualized dose optimization techniques were used for this CT. COMPARISON: 11/12/2015 FINDINGS: The visualized lung bases are unremarkable. The visualized portions of the heart are within normal limits. Normal liver. Normal gallbladder and extrahepatic biliary system. Normal spleen. Normal pancreas. Normal bilateral adrenal glands. Normal right kidney. Normal left kidney. Normal visualized stomach. Normal small intestine. Normal colon. There is non-visualization of the appendix. Normal abdominal aorta. Normal inferior vena cava. Normal retroperitoneum. Normal urinary bladder. Normal abdominal wall. Moderate levoscoliosis of the thoracic lumbar spine with deformity of the chest and abdomen. Sacral stimulator. CT/Abdomen/Pelvis WITH Contrast IMPRESSION: Normal enhanced CT of the abdomen and pelvis. Electronically Signed: Lito Pitts MD at 15:47 EDT ,
== END | disposition home or self-care (01) ==
LOC: CT 14:53
PROVIDERS: PCP Family Medicine; Referring Provider Nurse Practitioner Adult Health; Visit Provider Nurse Practitioner Adult Health
DX: R10.32 Left lower quadrant pain (principal); R10.819 Abdominal tenderness, unspecified site; R19.8 Other specified symptoms and signs involving the digestive system and abdomen
CPT/HCPCS: 74177; Q9967

== ENCOUNTER → 2022-06-02 | Outpatient (CLI) | payer MEDICARE, OTHER, SELFPAY ==
--- NOTE | 2022-06-02 14:28 | BI_ITS ---
MAMMOGRAPHY - BILATERAL DIAGNOSTIC REASON FOR EXAM: Female, 72 years old. BILAT BREAST PAIN PERTINENT HISTORY: Non-contributory. TECHNIQUE: Digital examination. Mediolateral oblique (MLO) and craniocaudad (CC) views of both breasts were obtained. CAD: CAD was performed on this study. COMPARISON: None. FINDINGS: Breast Composition: The breasts are extremely dense, which lowers the sensitivity of mammography. There are no dominant masses or suspicious calcifications. No other significant abnormalities are identified. BI/DIAG MAMM W/CAD, BILAT IMPRESSION: Stable bilateral diagnostic mammogram. ASSESSMENT CATEGORY: BIRADS Category 1: Negative. A letter regarding these results will be sent to the patient by the facility within 30 days. FOLLOW UP RECOMMENDATION: Yearly follow up mammogram recommended. (A) Approximately 10% of breast cancers are not detected by mammography. A normal mammogram should not delay biopsy of a clinically suspicious abnormality. Electronically Signed: Lito Pitts MD at 15:14 EDT ,
== END | disposition home or self-care (01) ==
PROVIDERS: PCP Family Medicine; Visit Provider Obstetrics & Gynecology
DX: N64.4 Mastodynia (principal)
CPT/HCPCS: 77062; 77066; G0279

== ENCOUNTER → 2022-06-24 | Outpatient (CLI) | payer MEDICARE, OTHER, SELFPAY ==
[2022-06-24 13:26] LABS: Thyroid Stim Hormone (TSH) 4.95 uIU/mL (0.358-3.74)
== END | disposition home or self-care (01) ==
LOC: MFPLAB 10:18
PROVIDERS: PCP Family Medicine; Referring Provider Family Medicine; Visit Provider Family Medicine
DX: E03.9 Hypothyroidism, unspecified (principal)
CPT/HCPCS: 36415; 84443

== ENCOUNTER 2022-08-20 08:20 | Day surgery (SDC) | payer MEDICARE, OTHER, SELFPAY ==
[2022-08-20] VITALS (7 sets, daily range): BP systolic 99–123; BP diastolic 61–68; PULSE 74–86; RESP 16–18; TEMP 36.4–36.9; O2SAT 96–97; BMI 26.3
[2022-08-20] MEDS: Lactated Ringers 1,000 ML 15 ML IV (08:56)
[2022-08-20] MEDS: Vancomycin IV 1,000 MG/200 ML BAG 200 MG IV (09:07)
--- NOTE | 2022-08-20 10:08 | DCINST_ITS ---
Discharge Instructions Diet Discharge Diet: No restrictions Activity Discharge Activity: Return to Normal Activity and May Shower May resume sexual activity in: 2 weeks Dressing / Incision Call your doctor if your incision/area has: Continuous Slow Oozing, Sudden Increased Bleeding, Increased Pain/ Swelling, Increased Redness, Foul Smelling Discharge and Swelling at the incision site Call your doctor if you observe: Fever of 101 or Higher, Inability to urinate and Inability to have a bowel movement Suture Line Care: Avoid Pulling/Pushing and Avoid Pinching/Bending Additional Dressing/Incision Instructions:: Do not pick off the skin glue, leave it to fall off as the incisions heal. Follow Up Care Please Follow Up With: Eveline Bocanegra MD When: In the office in 2 weeks, call for appointment Test Results: Test results from this visit will be discussed in further detail at your follow- up appointment, if applicable. Discharge Plan Admission Attending Provider: Eveline Bocanegra Primary Care Provider: Mayo Mccormick Discharge Orders/Prescriptions Prescriptions: New oxycodone-acetaminophen [Percocet] 5-325 mg tablet 1 tab PO Q8H PRN (Reason: pain) 3 Days Qty: 10 0RF cephalexin [cephalexin] 500 mg capsule 500 mg PO Q12 3 Days Qty: 6 0RF Continued montelukast 10 mg tablet 10 mg PO DAILY Qty: 90 3RF ascorbate calcium (vitamin C) 500 mg tablet 500 mg PO DAILY bupropion HCl 300 MG tablet extended release 24 hr 300 mg PO DAILY atorvastatin 40 MG tablet 40 mg PO QHS acyclovir 400 MG tablet 400 mg PO BID omeprazole 40 MG capsule 40 mg PO DAILY multivitamin,or-vyhm-sttgubxr 1 TABLET tablet 1 tab PO DAILY Artificial Eye Lubricant 1 APPLIC ointment 1 applic EACH EYE QHS Probiotic-Digestive Enzymes 1 EACH capsule 1 ea PO DAILY hydroxychloroquine 200 MG tablet 200 mg PO DAILY Label Comments: QOD 400MG Zyrtec 10 MG capsule 10 mg PO DAILY (DME) inhalational spacing device 1 EACH spacer 1 ea MC UD Qty: 1 0RF Autologous Eye Drop 1 drp EACH EYE Q4H PRN PRN (Reason: Dry Eyes) budesonide [Pulmicort] 0.5 mg/2 mL suspension for nebulization 0.5 mg INHALATION BID estriol (bulk) 100 % powder 1 ea MISCELLANEOUS TUFR Label Comments: 1 gram dissolved in water as directed psyllium Packet 1 packet PO DAILY Rx Instructions: mix into at least 8 oz of water or juice before administering melatonin 3 mg Tablet 3 mg PO QHS docusate sodium [Colace] 100 mg Capsule 100 mg PO DAILY Zenpep 40,000-126,000- 168,000 unit Capsule,Delayed Release(Dr/Ec) 1 cap PO TID Rx Instructions: administer with meals and/or snacks d-mannose 500 mg Capsule 2,000 mg PO DAILY albuterol sulfate [Ventolin HFA] 90 mcg/actuation HFA aerosol inhaler 2 puff INHALATION Q6H PRN PRN (Reason: Asthma) Qty: 8.5 6RF fluticasone propionate 50 mcg/actuation spray,suspension 2 spray Intranasal DAILY Qty: 16 3RF lubiprostone [Amitiza] 24 mcg capsule 24 mcg PO BID Qty: 180 3RF Referrals / Follow Up: Mayo Mccormick MD [Primary Care Provider] - Disposition Disposition (needs filled in before D/C Order can be placed): Home, Self Care
--- NOTE | 2022-08-20 10:28 | PCM.OPRPT ---
Report of Operation Date of Procedure: 08/20/22 Pre-Operative Diagnosis: Fecal incontinence Post-Operative Diagnosis: Same Surgery/Procedure Performed:: Replacement sacral neuromodulation lead and battery (stages 1 and 2) Surgeon: Eveline Bocanegra Type of Anesthesia: MAC Estimated Blood Loss (mL): 5 cc Description of Procedure: The patient is a 72-year-old female who has had longstanding fecal incontinence for more than a year. She has been through dietary management, pelvic floor strengthening, medical management, colonoscopy and InterStim trial. She is still having approximately 7 episodes of fecal incontinence each week and now presents for an Axonics placement and removal of her InterStim. Informed consent has been obtained. The patient was taken to the operating room and placed in a prone position on the operating room table. She was appropriately padded and secured to the table. Anesthesia monitored the head, neck, airway, IV access and vital signs throughout the case. Once anesthesia was appropriately administered, the patient was prepped and draped in usual sterile fashion. The pocket site of her indwelling InterStim battery was infiltrated with local anesthetic as was the area overlying the lead insertion site. The skin was then opened with a knife and cautery. The battery was pulled into the operative field and the lead was cut and the battery was removed. Using a hemostat, the lead was identified and the lead insertion site and grasped with a hemostat. Study traction was placed on the lead which was then removed in its entirety. The patient's left S3 foramen was then intubated with a needle. Fantastic tino response and a strong toe flexion was achieved. A skin incision surrounding the needle was then made and the dilator was inserted followed by the lead. All 4 leads had good response with stimulation. The sheath was then removed leaving the lead in situ. Fluoroscopic evaluation in both AP and lateral views of the lead revealed good positioning. At this time the tunneling device was used to tunnel the lead into the existing pocket site. The lead was dried and inserted into the battery and secured using the torque wrench. The battery was then placed into the pocket site. Impedances were found to be appropriate. The pocket was closed in 2 layers with 3-0 interrupted Vicryl followed by 4-0 Monocryl subcuticular suturing. The skin was then covered with glue. This procedure was then repeated on the patient's incision sites bilaterally over the lead insertion sites. The patient was then awakened and taken to the recovery room in good condition. There were no complications during this procedure. Grafts/Implants Used: Axonics lead and battery Complications None Admit VTE Documentation VTE Present on Admission: No VTE Mechan Device Prophylaxis: None VTE Pharm Prophylaxis ordered?: No Reason prophylaxis not ordered:: Treatment Not Indicated
--- NOTE | 2022-08-20 10:45 | RAD_ITS ---
STUDY: INTRAOPERATIVE FLUOROSCOPY TECHNIQUE: The examination was performed with referring physician in attendance. Under fluoroscopic observation, fluoroscopic images were obtained. Radiologist was not present for the study. Radiologist did not perform the procedure. This dictation is for documentation of the radiation dosage only. There is no interpretation of the images. TOTAL NUMBER OF IMAGES: 1 COMPARISON: None RADIATION DOSE: 8.4 mGy FLUOROSCOPY TIME: 20.9 seconds REASON FOR EXAM: REMOVAL INTERSTIM, PLACEMENT AXONIC STAGE 1 2 Female, 72 years old. FINDINGS: Images of the pelvis. Electronic lead noted. RAD/Pelvis 1 or 2 Views IMPRESSION: Fluoroscopic assistance images were obtained. Dictation for documentation purposes only. Electronically Signed: Chi Rivera MD at 19:48 EST ,
== END 2022-08-20 12:50 | disposition home or self-care (01) ==
LOC: SDC 08:21 → AC 08:21
PROVIDERS: PCP Family Medicine; Referring Provider Urology; Visit Provider Urology
PROC: (CPT 64595; principal; 2022-08-20 09:45)
DX: Z45.42 Encounter for adjustment and management of neurostimulator (principal); R15.9 Full incontinence of feces; N39.46 Mixed incontinence; N39.0 Urinary tract infection, site not specified
CPT/HCPCS: 64595; 64585; 64590; 64561; 00300; 72170; 76000; J7120; J2405

== ENCOUNTER 2022-09-03 08:46 | Outpatient (CLI) | payer MEDICARE, OTHER, SELFPAY ==
[2022-09-03 10:55] LABS: CPK Total, Creatine Kinase 68 U/L (26-192)
== END 2022-09-03 23:59 | disposition home or self-care (01) ==
LOC: MTLAB 08:48
PROVIDERS: PCP Family Medicine; Referring Provider Internal Medicine Rheumatology; Visit Provider Internal Medicine Rheumatology
DX: M33.90 Dermatopolymyositis, unspecified, organ involvement unspecified (principal)
CPT/HCPCS: 36415; 82550

== ENCOUNTER → 2022-10-08 | Outpatient (CLI) | payer MEDICARE, OTHER, SELFPAY | END | disposition home or self-care (01) | LOC: LAB 09:57 | PROVIDERS: PCP Family Medicine; Referring Provider Ophthalmology; Visit Provider Ophthalmology | DX: Z79.899 Other long term (current) drug therapy (principal) | CPT/HCPCS: 36415 ==

== ENCOUNTER → 2023-04-01 | Outpatient (CLI) | payer MEDICARE, OTHER, SELFPAY | END | disposition home or self-care (01) | PROVIDERS: PCP Family Medicine; Referring Provider Ophthalmology; Visit Provider Ophthalmology | DX: Z79.899 Other long term (current) drug therapy (principal) | CPT/HCPCS: 36415 ==

== ENCOUNTER → 2023-06-02 | Outpatient (CLI) | payer MEDICARE, OTHER, SELFPAY | END | disposition home or self-care (01) | LOC: LABSPEC 14:21 | PROVIDERS: PCP Family Medicine; Visit Provider Family Medicine | DX: N39.0 Urinary tract infection, site not specified (principal) | CPT/HCPCS: 87086; 87088; 87186 ==

== ENCOUNTER → 2023-06-08 | Outpatient (CLI) | payer MEDICARE, OTHER, SELFPAY | END | disposition home or self-care (01) | LOC: LAB 15:13 | PROVIDERS: PCP Family Medicine; Referring Provider Nurse Practitioner Acute Care; Visit Provider Nurse Practitioner Acute Care | DX: J41.0 Simple chronic bronchitis (principal) | CPT/HCPCS: 87070; 87205 ==

== ENCOUNTER → 2023-06-10 | Outpatient (CLI) | payer MEDICARE, OTHER, SELFPAY ==
--- NOTE | 2023-06-10 13:08 | BI_ITS ---
MAMMOGRAPHY - BILATERAL SCREENING REASON FOR EXAM: Female, 73 years old. Routine annual screening examination. PERTINENT HISTORY: Chronic bilateral retroareolar breast pain. TECHNIQUE: Digital bilateral breast elmer (3D mammographic acquisition) in the CC and MLO projections. 2-D mediolateral oblique (MLO) and craniocaudad (CC) views of both breasts were obtained. CAD: Full Field Digital Mammography with Computer Added Detection was performed. COMPARISON: Comparison is made with prior study June 02, 2022 and May 23, 2021. FINDINGS: Breast Composition: The breasts are heterogeneously dense, which may obscure small masses. There are no dominant masses or suspicious calcifications. No other significant abnormalities are identified. There has been no significant change since the prior study. BI/SCRN MAMM (CAD)W/ELMER BILAT IMPRESSION: Stable bilateral screening mammogram. Yearly follow-up mammogram recommended. (A) ASSESSMENT CATEGORY: BIRADS Category 1: Negative. A letter regarding these results will be sent to the patient by the facility within 30 days. Approximately 10% of breast cancers are not detected by mammography. A normal mammogram should not delay biopsy of a clinically suspicious abnormality. [id number] Electronically Signed: Gorge Welsh MD at 14:08 EDT ,
== END | disposition home or self-care (01) ==
LOC: OPBI 13:07
PROVIDERS: PCP Family Medicine; Referring Provider Obstetrics & Gynecology; Visit Provider Obstetrics & Gynecology
DX: Z12.31 Encounter for screening mammogram for malignant neoplasm of breast (principal)
CPT/HCPCS: 77063; 77067

== ENCOUNTER → 2023-06-17 | Outpatient (CLI) | payer MEDICARE, OTHER, SELFPAY ==
--- NOTE | 2023-06-17 15:50 | RAD_ITS ---
INDICATION: SHORTNESS OF BREATH EXAMINATION/TECHNIQUE: X-RAY - XR Chest 2 Views COMPARISON: 02/06/2018 FINDINGS: LINES/DEVICES: None. LUNGS: No consolidation, edema or effusion. No pneumothorax. MEDIASTINUM AND CARDIOVASCULAR STRUCTURES: Cardiac silhouette not enlarged. Central airways and mediastinal contour are unremarkable. BONES AND SOFT TISSUES: Scoliosis, no acute changes. RAD/Chest PA and Lateral IMPRESSION: No radiographic evidence of acute cardiopulmonary disease. Electronically Signed: Cisco Pollock MD at 22:29 EDT ,
[2023-06-17 17:47] LABS: Absolute Lymphocyte Count 0.38 X10^3/uL (0.83-4.51); Absolute Neutrophil Count 5.7 X10^3/uL (2.0-7.7); Basophil# 0.03 X10^3/uL; Basophil% 0.5 % (0-1); Hematocrit 47.1 % (37-47); Hemoglobin 14.7 g/dL (12.0-15.0); Lymphocyte # 0.38 X10^3/ul (0.83-4.51); Mean Corp Hgb Conc 31.2 g/dL (32-36); Mean Corpuscular Hgb 31.3 pg (27.0-32.0); Mean Corpuscular Volume 100.2 fL (81-99); Mean Platelet Vol. 12.1 fl (6.2-12.0); Monocyte# 0.19 X10^3/uL; NRBC Flagged by Analyzer 0 % (0-5); Neutrophil % 90.3 % (47-70); POSITIVE DIFFERENTIAL YES; Platelet Count 134 K/mm3 (150-450); RBC Distribution Width CV 12.9 % (11.6-14.6); RBC Distribution Width SD 48.2 fl (35.1-43.9); White Blood Count 6.3 K/mm3 (4.4-11.0)
[2023-06-17 17:51] LABS: Differential Indicated SCAN CRITERIA MET
[2023-06-17 18:04] LABS: Anion Gap 4 (5-15); BUN 15 mg/dL (7-18); BUN/Creat Ratio 17.5 RATIO (10-20); Chloride 110 mmol/L (98-107); Creatinine, Serum 0.86 mg/dL (0.55-1.02); EST Glomerular Filtration Rate 69 mL/min (>60); Est Glom Filt Rate - Afr Amer 83 mL/min (>60); Glucose 163 mg/dL (74-106); Potassium 3.7 mmol/L (3.5-5.1); Sodium Level 143 mmol/L (136-145)
[2023-06-17 18:54] LABS: Differential Comment SCANNED
== END | disposition home or self-care (01) ==
LOC: MTLAB 15:48
PROVIDERS: PCP Family Medicine; Referring Provider Family Medicine; Visit Provider Family Medicine
DX: R06.02 Shortness of breath (principal)
CPT/HCPCS: 36415; 71046; 80048; 85025

== ENCOUNTER → 2023-07-01 | Outpatient (CLI) | payer MEDICARE, OTHER, SELFPAY ==
--- NOTE | 2023-07-01 15:06 | US_ITS ---
STUDY: THYROID ULTRASOUND REASON FOR EXAM: Female, 73 years old. Follow-up from nodule TECHNIQUE: Ultrasound evaluation of the thyroid was performed with real-time and static singh-scale imaging. COMPARISON: 2018 FINDINGS: RIGHT LOBE: The right lobe of the thyroid gland measures 3.2 x 1.6 x 1.6 cm. There is a homogeneous echotexture. There are no demonstrated solid, cystic or complex lesions. LEFT LOBE: The left lobe of the thyroid gland measures 3.0 x 1.4 x 1.2 cm. There is a homogeneous echotexture. There is a stable solid/cystic 4 x 3 x 2 mm nodule This nodule is mixed cystic and solid, hypoechoic, [id number], smoothly marginated and contains no echogenic foci. TI-RADS points: 3. TI-RADS category: TR3. This nodule is mildly suspicious but no FNA or follow-up is necessary given the small size of this nodule. ISTHMUS: The isthmus measures 0.1 cm. The regional lymph nodes are normal. US/Thyroid IMPRESSION: Normal-sized homogeneous thyroid gland with stable solid/cystic subcentimeter nodule in the left lobe. No specific follow-up needed. Categorization as described above Electronically Signed: Benedicto Amador MD at 23:59 EDT ,
== END | disposition home or self-care (01) ==
LOC: US 15:05
PROVIDERS: PCP Family Medicine; Referring Provider Family Medicine; Visit Provider Family Medicine
DX: E04.2 Nontoxic multinodular goiter (principal)
CPT/HCPCS: 76536

== ENCOUNTER → 2023-07-02 | Outpatient (CLI) | payer MEDICARE, OTHER, SELFPAY ==
--- NOTE | 2023-07-02 08:50 | RAD_ITS ---
STUDY: SMALL BOWEL FOLLOW-THROUGH EXAMINATION. REASON FOR EXAM: Female, 73 years old. Suspect constipation TECHNIQUE: The patient ingested barium. A small bowel follow-through examination was done obtained. 10 images were obtained. COMPARISON: None. FINDINGS: A charge entry specialist film was obtained. A large amount of fecal material is seen throughout the colon in keeping with constipation. Marked degree of levoscoliosis. Spinal cord stimulator device is seen with battery pack overlying the right iliac bone. There is a delay in the transit of the barium through the small bowel loops. The terminal ileum is visualized at 45 hours following the injection. RAD/Small Bowel Series Only IMPRESSION: No evidence of bowel obstruction. Delay in transit through the small bowel. Large amount of fecal material is seen in the colon. Electronically Signed: Gorge Welsh MD at 13:51 EDT ,
== END | disposition home or self-care (01) ==
LOC: RAD 08:44
PROVIDERS: PCP Family Medicine; Referring Provider Family Medicine; Visit Provider Family Medicine
DX: K59.00 Constipation, unspecified (principal)
CPT/HCPCS: 74250

== ENCOUNTER → 2023-07-13 | Outpatient (CLI) | payer MEDICARE, OTHER, SELFPAY ==
[2023-07-13 12:34] LABS: Anion Gap 3 (5-15); BUN 12 mg/dL (7-18); BUN/Creat Ratio 16.7 RATIO (10-20); Chloride 111 mmol/L (98-107); Cholesterol 142 mg/dL (200); Creatinine, Serum 0.72 mg/dL (0.55-1.02); EST Glomerular Filtration Rate 85 mL/min (>60); Est Glom Filt Rate - Afr Amer 102 mL/min (>60); Glucose 93 mg/dL (74-106); High Density Lipoprotein 62 mg/dL; Potassium 3.7 mmol/L (3.5-5.1); Sodium Level 144 mmol/L (136-145); Triglycerides 109 mg/dL; Very Low Density Lipoprotein 22 mg/dL (5-40)
== END | disposition home or self-care (01) ==
LOC: MTLAB 10:14
PROVIDERS: PCP Family Medicine; Referring Provider Family Medicine; Visit Provider Family Medicine
DX: Z00.00 Encounter for general adult medical examination without abnormal findings (principal); Z79.899 Other long term (current) drug therapy
CPT/HCPCS: 36415; 80048; 80061

== ENCOUNTER → 2023-07-16 | Outpatient (CLI) | payer MEDICARE, OTHER, SELFPAY ==
--- NOTE | 2023-07-16 15:39 | RAD_ITS ---
STUDY: X-RAY CHEST REASON FOR EXAM: Female, 73 years old. PNEUMONIA TECHNIQUE: Frontal and lateral views of the chest. COMPARISON: 06/17/2023. No infiltrates or effusions are seen. FINDINGS: Elevated right hemidiaphragm, stable. Normal size heart. Normal mediastinum and daisy. Normal visualized pulmonary arteries. Normal visualized aortic arch and descending thoracic aorta. There is prominent S-shaped scoliosis of the entire spine. Normal visualized ribs, clavicles, and shoulders. There is no demonstrated abnormality of the visualized soft tissue structures of the upper abdomen. RAD/Chest PA and Lateral IMPRESSION: No significant change or acute abnormality. Electronically Signed: Taz Scherer MD at 20:23 EDT ,
[2023-07-16 17:33] LABS: Absolute Lymphocyte Count 0.92 X10^3/uL (0.83-4.51); Absolute Neutrophil Count 1.6 X10^3/uL (2.0-7.7); Basophil# 0.04 X10^3/uL; Basophil% 1.3 % (0-1); Eosinophil# 0.11 X10^3/uL; Eosinophils% 3.7 % (0-5); Hemoglobin 14.2 g/dL (12.0-15.0); Lymphocyte # 0.92 X10^3/ul (0.83-4.51); Mean Corp Hgb Conc 31.6 g/dL (32-36); Mean Corpuscular Hgb 31.3 pg (27.0-32.0); Mean Corpuscular Volume 99.3 fL (81-99); Mean Platelet Vol. 12.1 fl (6.2-12.0); Monocyte# 0.32 X10^3/uL; Monocyte% 10.8 % (0-10); NRBC Flagged by Analyzer 0 % (0-5); Neutrophil # 1.57 X10^3/uL (2.7-7.7); Neutrophil % 52.9 % (47-70); Platelet Count 124 K/mm3 (150-450); RBC Distribution Width CV 13.2 % (11.6-14.6); RBC Distribution Width SD 48.5 fl (35.1-43.9); Red Blood Count 4.53 M/mm3 (4.2-5.4)
== END | disposition home or self-care (01) ==
LOC: MTLAB 15:34
PROVIDERS: PCP Family Medicine; Referring Provider Family Medicine; Visit Provider Family Medicine
DX: J18.9 Pneumonia, unspecified organism (principal)
CPT/HCPCS: 36415; 71046; 85025

== ENCOUNTER → 2023-08-16 | Outpatient (CLI) | payer MEDICARE, OTHER, SELFPAY ==
--- NOTE | 2023-08-20 07:38 | PFTCOMP_ITS ---
COMPLETE PULMONARY FUNCTION TEST INTERPRETATION Brief HPI: Patient is a 73-year-old female, currently under the care of myself, who presents to [facility] for complete pulmonary function tests secondary to diagnosis of dermatomyositis. Respiratory therapist reports good effort and reproducible results. Interpretation: Forced expiration spirometry shows no large airways obstructive ventilatory defect with an FEV1 of 64% predicted. There is no significant bronchodilator response by strict ATS criteria, but some improvement in FEV1. Spirograms are of good quality and plateau normally. The respiratory flow volume loop shows a normal pattern. Lung volumes by body plethysmography show a decreased total lung capacity at 2.69 L, 63% predicted. All other lung volumes are reduced symmetrically. Diffusion capacity by carbon monoxide is decreased at 68% predicted. The airway resistance is elevated. Compared to previous pulmonary function tests from 08/20/2020, there has been a significant reduction in total lung capacity and DLCO. Impression: Moderate restrictive ventilatory defect with a symmetric reduction diffusion capacity and worsening compared to 2019
== END | disposition home or self-care (01) ==
LOC: PSN 12:53
PROVIDERS: PCP Family Medicine; Referring Provider Internal Medicine Critical Care Medicine; Visit Provider Internal Medicine Critical Care Medicine
DX: M33.90 Dermatopolymyositis, unspecified, organ involvement unspecified (principal)
CPT/HCPCS: 94060; 94726; 94729

== ENCOUNTER → 2023-08-31 | Outpatient (CLI) | payer MEDICARE, OTHER, SELFPAY ==
[2023-08-31 16:26] LABS: Mucous, Urine 0 SEEN /hpf (<or=2+); Squamous Epithelial Cells - UA 0 SEEN /hpf (5-10)
[2023-08-31 17:39] LABS: Color, Urine Yellow (Yellow); Glucose, Dipstick Normal (Normal); Ketone-Dipstick Negative (Negative); Leukocyte Esterase-Dipstick 500 /ul (Negative); Nitrite-Dipstick Negative (Negative); Occult Blood-Urine 25 /ul (Negative); Protein-Dipstick Negative (Negative); Urine Bilirubin Dipstick Negative (Negative); Urine Clarity Clear (Clear); Urine Urobilinogen Normal (Normal)
[2023-08-31 17:52] LABS: Bacteria 2+ /hpf (None Seen); Red Blood Cells-Urine 0-5 SEEN /hpf (0-5); White Blood Cells 10-25 SEEN /hpf (0-5)
== END | disposition home or self-care (01) ==
LOC: MTLAB 16:16
PROVIDERS: PCP Family Medicine; Referring Provider Family Medicine; Visit Provider Family Medicine
DX: R39.9 Unspecified symptoms and signs involving the genitourinary system (principal)
CPT/HCPCS: 81001; 87077; 87086; 87088; 87186

== ENCOUNTER → 2023-10-01 | Outpatient (CLI) | payer MEDICARE, OTHER, SELFPAY ==
--- OUTSIDE RECORDS SUMMARY | 2023-10-01 10:53 | XMS RPT_ITS | CCD ---
Author Name Unknown Address [address] [place] [address] Organization [facility] Care Team Providers Care Hvac Services Professional Name Role Phone Geovanna Pérez CNP Unavailable Kim Rodriguez Unavailable Unavailable Josee CARTER, Aida Ortega Unavailable Unavaila ble Kim Rodriguez Unavailable Unavailable Aida Myles Unavailable Unavailable Aida Myles Unavailable Unavailable Mayo Mccormick Admitting Unavailable Mayo Mccormick Attending Unavailable Mayo Mccormick Primary Care Unavailable Allergies Allergy Classification Reported Allergen(s) Allergy Type Date of Onset Reaction(s) Facility (14 sources) codeine drug allergy 6 vomitting [facility] Work Phone: (7 sources) dextromethorphan drug allergy 6 headache, dizzy [facility] Work Phone: (14 sources) penicillin v drug allergy 5 Unsure, felt faint and was taken off. Later on, Dr. Ivy tried it and she was fine [facility] Work Phone: Medications Completed/Discontinued Medications Medication Drug Class(es) Dates Sig (Normalized) Sig (Original) HYDROCODONE-ACETAMI NOPHEN (14 sources) Opioid Agonist Start: 08-31-2016 NORCO 5-325 MG TABS 1-2 tabs q6h as needed HYDROCODONE-ACETAMIN OPHEN [id number] Aida Tripp LPN Problems Active Problems Problem Classification Problem Date Documented Date Episodic/Chronic Asthma (7 sources) Asthma; Translations: [Unspecified asthma, uncomplicated] Onset: 06-16-2016 06-16-2016 Chronic Chronic obstructive pulmonary disease and bronchiectasis (7 sources) Chronic bronchitis; Translations: [Unspecified chronic bronchitis] Onset: 06-16-2016 06-16-2016 Chronic Cystic fibrosis (14 sources) Immunodeficiency disorder; 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 ] Onset: 03-31-2013 03-31-2013 Chronic Deficiency and other anemia (7 sources) Pancytopenia; Translations: [Other pancytopenia] Onset: 03-31-2013 03-31-2013 Chronic Malaise and fatigue (7 sources) Chronic fatigue syndrome; Translations: [Chronic fatigue, unspecified] Onset: 04-12-2013 04-12-2013 Chronic Other upper respiratory disease (7 sources) Seasonal allergy; Translations: [Other seasonal allergic rhinitis] Onset: 06-05-2015 06-05-2015 Chronic Systemic lupus erythematosus and connective tissue disorders (7 sources) Dermatomyositis; 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, unspecified, organ involvement unspecified] Onset: 03-06-2015 03-06-2015 Chronic Past or Other Problems Problem Classification Problem Date Documented Da te Episodic/Chronic Other disorders of stomach and duodenum (7 sources) Indigestion; Translations: [Functional dyspepsia] Onset: 07-26-2015 07-26-2015 Episodic Other lower respiratory disease (14 sources) Dyspnea; Translations: [Chronic cough] Onset: 03-06-2015 07-26-2015 Episodic Results Test Name Value Interpretation Reference Range Facil ity Vital Signs Date Time Vital Sign Value Performing Clinician Faci lity 05-24-2017 07:13-0400 BMI (Body Mass Index) 25.16 kg/m2 Aida Tripp LPN [facility] Work Phone: 05-24-2017 07:13-0400 Body Temperature 97.8 [degF] Aida Tripp LPN [facility] Work Phone: 05-24-2017 07:13-0400 BP Diastolic 80 mm[Hg] Aida Tripp LPN [facility] Work Phone: 05-24-2017 07:13-0400 BP Systolic 124 mm[Hg] Aida Tripp LPN [facility] Work Phone: 05-24-2017 07:13-0400 Height 153.67 cm Aida Tripp LPN [facility] Work Phone: 05-24-2017 07:13-0400 Pulse (Heart Rate) 83 /min Aida Tripp LPN [facility] Work Phone: 05-24-2017 07:13-0400 Respiratory Rate 18 /min Aida Tripp LPN [facility] Work Phone: 05-24-2017 07:13-0400 Weight 59.42 kg Aida Tripp LPN [facility] Work Phone: 02-17-2017 09:01-0400 BMI (Body Mass Index) 24.78 kg/m2 Aida Myles [facility] Work Phone: 02-17-2017 09:01-0400 Body Temperature 98.2 [degF] Aida Myles [facility] Work Phone: 02-17-2017 09:01-0400 BP Diastolic 78 mm[Hg] Aida Myles [facility] Work Phone: 02-17-2017 09:01-0400 BP Systolic 118 mm[Hg] Aida Myles [facility] Work Phone: 02-17-2017 09:01-0400 Height 153.67 cm Aida Myles [facility] Work Phone: 02-17-2017 09:01-0400 Pulse (Heart Rate) 79 /min Aida Myles [facility] Work Phone: 02-17-2017 09:01-0400 Pulse Oximetry 96 % Aida Myles [facility] Work Phone: 02-17-2017 09:01-0400 Respiratory Rate 18 /min Aida Myles [facility] Work Phone: 02-17-2017 09:01-0400 Weight 58.51 kg Aida Shar [facility] Work Phone: 08-31-2016 13:46-0500 Body Temperature 97.7 [degF] Aida Myles [facility] Work Phone: 08-31-2016 13:46-0500 BSA (Body Surface Area) 1.57 m2 Aida Myles [facility] Work Phone: 08-31-2016 13:46-0500 Height 153.67 cm AidaApto [facility] Work Phone: 08-31-2016 13:46-0500 Weight 59.09 kg Aida PushCoin [facility] Work Phone: Encounters Encounter Date Encounter Type Care Provider Facility Start: 11-14-2018 Patient encounter procedure Mayo solomon Facility:[facility] Start: 11-14-2018 Patient encounter procedure Facility:[id number] Procedures Date Procedure Procedure Detail Performing Clinician Start: 02-17-2017 End: 03-04-2017 MARIBEL Barkley RESPIRATORY SUPERVISOR Work Phone: Start: 02-17-2017 End: 03-04-2017 Ct thorax w/o dye Geovanna Barkley RESPIRATORY SUPERVISOR Work Phone: Start: 02-17-2017 End: 03-04-2017 Follow Up Appt 3 months Geovanna hays RIGGER HELPER Work Phone: Start: 02-17-2017 End: 03-04-2017 Tte w/doppler, complete Geovanna hays RIGGER HELPER Work Phone: Start: 08-13-2016 End: 08-20-2016 Pulmonary Function Test - complete Geovanna Pérez CNP Work Phone: Start: 06-03-2016 End: 08-10-2016 MARIBEL Barkley RESPIRATORY SUPERVISOR Work Phone: Start: 06-03-2016 End: 08-10-2016 Follow Up Appt 3 months Geovanna S Laly er RIGGER HELPER Work Phone: Start: 03-02-2016 End: 08-10-2016 Follow Up Appt 3 months Geovanna Ruffin er RIGGER HELPER Work Phone: Start: 12-03-2015 End: 06-01-2016 [facility] Ezio Huerta Work Phone: Start: 12-03-2015 End: 06-01-2016 Follow Up Appt 3 months Ezio Huerta Work Phone: Start: 11-12-2015 End: 06-01-2016 Pulmonary Function Test - complete Ezio Huerta Work Phone: Start: 08-01-2015 End: 06-01-2016 Ct thorax w/o dye Ezio Huerta Work Phone: Start: 07-29-2015 End: 06-01-2016 Chest x-ray Geovanna Barkley RESPIRATORY SUPERVISOR Work Phone: Start: 06-05-2015 End: 06-01-2016 Follow Up Appt 6 months Ezio Huerta Work Phone: Start: 03-06-2015 End: 06-01-2016 Follow Up Appt 3 months Ezio Huerta Work Phone: Start: 03-06-2015 End: 06-01-2016 Pulmonary Function Test - complete Ezio Huerta Work Phone: Start: 03-06-2015 End: 06-01-2016 Pulmonary stress test/simple Ezio Huerta Work Phone: Start: 03-06-2015 End: 06-01-2016 Tte w/doppler, complete Ezio Huerta Work Phone: Start: 12-14-2013 End: 12-23-2013 *IGSUB IMMUN Subclas-IGG1,2,3 &4 Indiana Saenz MD Start: 12-14-2013 End: 12-23-2013 IgA Indiana Saenz MD Start: 12-14-2013 End: 12-23-2013 IgG Indiana Saenz MD Start: 12-14-2013 End: 12-23-2013 IgM Indiana Saenz MD Plan of Treatment Date Care Activity Detail Author Start: 11-22-2017 End: 11-22-2017 Appointment Appointment [facility] Phone: Start: 05-24-2017 End: 05-24-2017 Appointment Appointment [facility] Phone: Start: 05-24-2017 End: 05-24-2017 [facility] Work Phone: Start: 05-24-2017 End: 05-24-2017 Follow Up Appt 6 months Follow Up Appt 6 months [facility] Phone: Start: 02-17-2017 End: 03-04-2017 MARIBEL LÓPEZ [facility] Phone: Start: 02-17-2017 End: 03-04-2017 Ct thorax w/o dye CT Chest without contrast [facility] Phone: Start: 02-17-2017 End: 03-04-2017 Follow Up Appt 3 months Follow Up Appt 3 months [facility] Phone: Start: 02-17-2017 End: 03-04-2017 Tte w/doppler, complete Echo Complete with Color Flow [facility] Phone: Start: 11-30-2016 End: 11-30-2016 MARIBEL LÓPEZ [facility] Work Phone: Start: 11-30-2016 End: 11-30-2016 Follow Up Appt 3 months Follow Up Appt 3 months [facility] Phone: Start: 11-30-2016 End: 11-30-2016 Pulmonary Function Test - complete Pulmonary Function Test - complete [facility] Phone: Start: 08-31-2016 End: 08-31-2016 [facility] Work Phone: Start: 08-31-2016 End: 08-31-2016 Follow Up Appt 3 months Follow Up Appt 3 months [facility] Work Phone: Start: 08-13-2016 End: 08-20-2016 Pulmonary Function Test - complete Pulmonary Function Test - complete [facility] Work Phone: Start: 06-03-2016 End: 08-10-2016 BWA BWA [facility] Work Phone: Start: 06-03-2016 End: 08-10-2016 Follow Up Appt 3 months Follow Up Appt 3 months [facility] Work Phone: Start: 03-02-2016 End: 08-10-2016 Follow Up Appt 3 months Follow Up Appt 3 months [facility] Work Phone: Start: 12-03-2015 End: 06-01-2016 [facility] Work Phone: Start: 12-03-2015 End: 06-01-2016 Follow Up Appt 3 months Follow Up Appt 3 months [facility] Work Phone: Start: 11-12-2015 End: 06-01-2016 Pulmonary Function Test - complete Pulmonary Function Test - complete [facility] Work Phone: Start: 08-01-2015 End: 06-01-2016 Ct thorax w/o dye CT Chest without contrast [facility] Work Phone: Start: 07-29-2015 End: 06-01-2016 Chest x-ray X-Ray, Chest, PA & Lateral [facility] Work Phone: Start: 06-05-2015 End: 06-01-2016 Follow Up Appt 6 months Follow Up Appt 6 months [facility] Work Phone: Start: 03-06-2015 End: 06-01-2016 Follow Up Appt 3 months Follow Up Appt 3 months [facility] Work Phone: Start: 03-06-2015 End: 06-01-2016 Pulmonary Function Test - complete Pulmonary Function Test - complete [facility] Phone: Start: 03-06-2015 End: 06-01-2016 Pulmonary stress test/simple Pulmonary stress testing; simple (eg, 6-minute walk) [facility] Phone: Start: 03-06-2015 End: 06-01-2016 Tte w/doppler, complete Echo Complete with Color Flow [facility] Phone: Start: 12-14-2013 End: 12-23-2013 *IGSUB IMMUN Subclas-IGG1,2,3 &4 *IGSUB IMMUN Subclas-IGG1,2,3 &4 [facility] Phone: Start: 12-14-2013 End: 12-23-2013 IgA *DEE DEE Immunoglobulin A (IgA) [facility] Phone: Start: 12-14-2013 End: 12-23-2013 IgG *IMG Immunoglobulin G (IgG) [facility] Phone: Start: 12-14-2013 End: 12-23-2013 IgM *IMM Immunoglobulin (IgM) [facility] Phone: Start: 04-12-2013 End: 04-12-2013 *CBC with Differential *CBC with Differential [facility] Phone: Start: 03-31-2013 End: 03-31-2013 *JOSE GUADALUPE *JOSE GUADALUPE [facility] Phone: Start: 03-31-2013 End: 03-31-2013 *CMP Complete Metabolic Panel *CMP Complete Metabolic Panel [facility] Phone: Start: 03-31-2013 End: 03-31-2013 *HIV antibody *HIV antibody [facility] Phone: Start: 03-31-2013 End: 03-31-2013 *IGSUB IMMUN Subclas-IGG1,2,3 &4 *IGSUB IMMUN Subclas-IGG1,2,3 &4 [facility] Work Phone: Start: 03-31-2013 End: 03-31-2013 *MISC - Miscellaneous Lab Test #1 *MISC - Miscellaneous Lab Test #1 [facility] Work Phone: Start: 03-31-2013 End: 03-31-2013 *SPEP (Serum Protein Electrophoresis) *SPEP (Serum Protein Electrophoresis) [facility] Work Phone: Start: 03-31-2013 End: 03-31-2013 C reactive protein (hsCRP) *CRP - C-Reative Protein [facility] Work Phone: Start: 03-31-2013 End: 03-31-2013 Gamma glutamyl transferase *GGTP [facility] Phone: Start: 03-31-2013 End: 03-31-2013 IgA *DEE DEE Immunoglobulin A (IgA) [facility] Phone: Start: 03-31-2013 End: 03-31-2013 IgG *IMG Immunoglobulin G (IgG) [facility] Phone: Start: 03-31-2013 End: 03-31-2013 IgM *IMM Immunoglobulin (IgM) [facility] Phone: Payers Date Payer Category Payer Medicare 2018 Private Health Insurance 1950 Unknown [id number] 1950 Unknown [id number] Medicare [id number] Private Health Insurance [id number] Progress note 12-23-2020 Note Date & Type Note Facility 12-23-2020 Note HNO ID: [id number] Author: Kelly Valiente Service: ? Author Type: Physician Type: Progress Notes Filed: 12/23/2020 3:14 PM Note Text: [facility] - NEW PATIENT EVALUATION SELF Evonne Urena MD [address] [facility] [address] [facility] [address] Mccormick: Thank you for referring Ms. Tabor to our clinic today. As you know she is a 70 year old left-handed female who is seen in consultation for evaluation of tremor since several years . She is seen with her . Subjective HISTORY OF PRESENT ILLNESS: Initial HPI Presents for tremors. Has had them since years before 2010. Saw outside neurologist years ago who didn't want to start medication because she already takes so many. Rare head tremors. No vocal tremors. Writing is terrible, scribbly. Drops things when she eats. Can hold mug with 1 hand. Little trouble eating. Tremors are bothersome with scrap booking- hard to glue letters straight. Dexterity is fine. Balance is fine except little off upon first standing up. Attributes to her back. Sometimes lightheaded upon getting up. Daughter and son with tremors. Never tried any medications for tremors. Nothing makes them better or worse. Never drinks EtOH. Tongue tingling due to dental problems. Has pins to hold dentures. Headaches were in the morning and were better with using CPAP. Now are occasional and in the morning. Were daily. Has GERD. Gets squeaky voice at times. Has nodules on thyroid. At times voice is normal, is squeaky today. In addition, the following areas that may be affected by abnormal involuntary movements were evaluated: Daily activities Difficulties with eating: Yes: mild Difficulties in dressin (none) Difficulties with hygiene activities: 0 (none) Difficulties with handwriting: Yes (slight) Difficulties with doing hobbies and other activities: Yes (mild) Difficulties turning in bed: 0 (none) Difficulties getting out of bed, car or chair: Yes (slight) Tremors/Gait/Balance Shaking or tremors: Yes (mild) Walking and balance problems: 0 (none) Number of falls in the Last Month: 0 Gait freezin (none) Autonomic/Pain Lightheadeness on standing: Yes (slight) Urinary problems: Yes (moderate): Constipation problems: Yes (mild) Pain and other sensations: 0 (none) Speech/Swallowing Droolin (none) Chewing and swallowing problems: 0 (none) Sleep/Fatigue Sleep problems: 0 (none) Daytime sleepiness: 0 (none) Fatigue: Yes (slight) Mood/Behavior Depression: PQH-9 = 0 usually representing no significant (0-4) depression. Anxiety: ANASTASIIA-7 = 0 usually representing no significant (0-4) anxiety. Finally, the following table shows the patient's overall global physical and mental health using the PROMIS scale: PROMIS-10 Office Visit from 12/23/2020 in Neurology OT/PT/Speech Visit from 10/14/2015 in [facility] Physical Therapy Global Physical Health T Score 50.8 39.8 Global Mental Health T Score 53.3 45.8 0-10 Standard Pain Scale 4 4 *PROMIS-10 scoring scale: mean = 50, over 50 is above average, under 50 is below average Movement Disorders Medications Schedule - as of the start of the visit: Review of Systems Review of Systems Constitutional Negative for Fevers, Night Sweats, Weight Gain, Weight Loss and Fatigue Eyes Negative for Change in vison not corrected by glasses and Vision loss or change Hent Positive for Tinnitus and Recent change in speech or voice Negative for Hearing Loss and Difficulty Swallowing Cardiovascular Positive for Lightheadedness and Leg pain with walking Negative for Chest Pain Respiratory Negative for SOB at rest, SOB with exertion, Cough, Wheezing and Snoring GI Negative for Blood in Stool, Abdominal Pain, Diarrhea, Constipation, Nausea/Vomiting and Heartburn Negative for Urgency and Incontinence Endocrine Negative for Heat Intolerance and Excessive Thirst Musculoskeletal Positive for Back Pain and Stiff Joints Negative for Joint Swelling and Muscle Pain Integumentary Negative for Rashes, Itching, Other Lesions and Hair Changes Heme/Lymph Positive for Easy Bruising Negative for Prolonged Bleeding and Swelling of Arm or Leg Allergy/Immunologic Positive for Nasal Congestion Negative for Swollen Nodes Neurologic Positive for Headache and Numbness/Tingling Negative for Memory Problems, Weakness, Double Vision, Trouble Swallowing and Slurred Speech Psychiatric Positive for Depression Negative for Stress or Conflicts, Anxiety, Irritability, Hallucinations and Delusions Patient's Review of Systems has been reviewed with the patient and updated as appropriate. ALLERGIES Allergen Reactions - Codeine GI Upset - Penicillin G Current Outpatient Medications Medication Sig - LINZESS 290 mcg capsule Take 290 mcg by mouth once daily. - hydrocortisone 2.5 % cream - budesonide (PULMICORT) 0.5 mg/2 mL nebulizer solution - f (more content not included)... [facility] Summary Purpose Family History No Family History Records FoundNo Family History Records FoundNo Family History Records Found Advance Directives No Advanced Directives Records FoundNo Advanced Directives Records FoundNo Advanced Directives Records Found Additional Source Comments INFORMATION SOURCE (unrecogn ized section and content) DATE CREATED AUTHOR AUTHOR'S RAY ATION 12/21/2018 [facility] DATE CREATED AUTHOR AUTHOR'S ORGANIZ ATION 10/07/2021 [facility] FOR RECORDS PERTAINING TO PATIENTS WHO ARE OR HAVE BEEN ENROLLED IN A CHEMICAL DEPENDENCY/SUBSTANCEABUSE PROGRAM, SOME INFORMATION MAY BE OMITTED. This clinical summary was aggregated from multiple sources. Caution should be exercised in using it in the provision of clinical care. This summary normalizes information from multiple sources, and as a consequence, information in this document may materially change the coding, format and clinical context of patient data. In addition, data may be omitted in some cases. CLINICAL DECISIONS SHOULD BE BASED ON THE PRIMARY CLINICAL RECORDS. [facility] [employer] [facility]. provides no warranty or guarantee of the accuracy or completeness of information in this document.
== END | disposition home or self-care (01) ==
LOC: LAB 10:37
PROVIDERS: PCP Family Medicine; Referring Provider Ophthalmology; Visit Provider Ophthalmology
DX: Z79.899 Other long term (current) drug therapy (principal)
CPT/HCPCS: 36415

== ENCOUNTER → 2023-10-06 | Outpatient (CLI) | payer MEDICARE, OTHER, SELFPAY ==
--- NOTE | 2023-10-06 15:50 | CT_ITS ---
INDICATION: Chest pain/pressure EXAMINATION: CT CHEST WITHOUT CONTRAST - CT Chest W/O Contrast Injection TECHNIQUE: Helically acquired images were obtained of the chest. A radiation dose optimization technique was used for this scan. IV Contrast dosage and agent: None. COMPARISON: None. FINDINGS: LUNGS, PLEURA AND LARGE AIRWAYS: Lung windows show the lungs to be normally expanded. No organized infiltrate or effusion. No suspicious noncalcified mass or nodule. THYROID: No thyroid lesions. HEART AND PERICARDIUM: Heart size is normal. No pericardial effusion. CORONARY ARTERIES: Coronary artery calcification is not seen. VESSELS: Thoracic aorta is not dilated. MEDIASTINUM AND KAREN: No mediastinal or hilar adenopathy. Esophagus is unremarkable. No hiatal hernia. UPPER ABDOMEN: Limited cuts through the upper abdomen show hepatic flecture projecting between the anterior edge of the liver and the peritoneal surface. BONES: Multilevel degenerative changes with a rotatory scoliosis CT/Chest without Contrast IMPRESSION: No acute pulmonary process No suspicious adenopathy Degenerative bony changes with a rotatory scoliosis Electronically Signed: Benedicto Amador MD at 16:47 EST ,
== END | disposition home or self-care (01) ==
LOC: CT 15:49
PROVIDERS: PCP Family Medicine; Referring Provider Nurse Practitioner Acute Care; Visit Provider Nurse Practitioner Acute Care
DX: J84.9 Interstitial pulmonary disease, unspecified (principal)
CPT/HCPCS: 71250

== ENCOUNTER → 2023-12-23 | Outpatient (CLI) | payer MEDICARE, OTHER, SELFPAY ==
[2023-12-23 18:26] LABS: PTHIN 29.7 pg/mL (18.4-80.1)
[2023-12-23 18:36] LABS: Anion Gap 2 (5-15); BUN 19 mg/dL (7-18); BUN/Creat Ratio 19.8 RATIO (10-20); Calcium,Total 9.4 mg/dL (8.5-10.1); Chloride 108 mmol/L (98-107); Cholesterol 142 mg/dL (200); Creatinine, Serum 0.96 mg/dL (0.55-1.02); EST Glomerular Filtration Rate 61 mL/min (>60); Est Glom Filt Rate - Afr Amer 73 mL/min (>60); Free T3 2.5 pg/mL (2.18-3.98); Glucose 102 mg/dL (74-106); High Density Lipoprotein 59 mg/dL; Sodium Level 142 mmol/L (136-145); T4 Free Direct 1.01 ng/dL (0.76-1.46); Thyroid Stim Hormone (TSH) 2.05 uIU/mL (0.358-3.74); Triglycerides 100 mg/dL; Very Low Density Lipoprotein 20 mg/dL (5-40)
== END | disposition home or self-care (01) ==
LOC: MFPLAB 14:56
PROVIDERS: PCP Family Medicine; Visit Provider Family Medicine
DX: Z00.00 Encounter for general adult medical examination without abnormal findings (principal); M81.0 Age-related osteoporosis without current pathological fracture; E03.9 Hypothyroidism, unspecified
CPT/HCPCS: 36415; 80048; 80061; 83970; 84439; 84443; 84481

== ENCOUNTER → 2024-02-10 | Outpatient (CLI) | payer MEDICARE, OTHER, SELFPAY ==
--- NOTE | 2024-02-10 08:49 | NM_ITS ---
CLINICAL: 73-year-old female with history of change in bowel habits. SEMI-SOLID PHASE 99m Tc SULFUR COLLOID GASTRIC EMPTYING STUDY COMPARISON: None available FINDINGS: The patient was administered 1.2 mCi of 99m Tc sulfur colloid mixed with oatmeal and consumed per os. Image acquisitions in the anterior-posterior projections were obtained for 60 minutes. There is prompt visualization of the stomach. There is no gastroesophageal reflux identified. The T ? linear fit was calculated to be 29.4 minutes, (Normal: 12-56 minutes). NM/Gastric Emptying Study IMPRESSION: 1. NORMAL 99m Tc sulfur colloid semi-solid phase (oatmeal) gastric emptying imaging examination. A. There is normal and preserved semi-solid phase gastric emptying compared to normal controls. (Monica et al, J Nucl Med Tech 38: 186, 2010). Electronically Signed: Lito Farr DO at 9:28 EDT ,
== END | disposition home or self-care (01) ==
PROVIDERS: PCP Family Medicine; Referring Provider Internal Medicine Gastroenterology; Visit Provider Internal Medicine Gastroenterology
DX: R19.8 Other specified symptoms and signs involving the digestive system and abdomen (principal)
CPT/HCPCS: 78264; A9541

== ENCOUNTER → 2024-03-22 | Outpatient (CLI) | payer SELFPAY ==
[2024-03-22 12:00] LABS: SERUM TEARS COLLECTION SPECIMEN PROCESSED
== END | disposition home or self-care (01) ==
LOC: LAB 09:37
PROVIDERS: PCP Family Medicine; Referring Provider Ophthalmology; Visit Provider Ophthalmology
DX: Z79.899 Other long term (current) drug therapy (principal)
CPT/HCPCS: 36415

== ENCOUNTER → 2024-06-02 | Outpatient (CLI) | payer MEDICARE, OTHER, SELFPAY | END | disposition home or self-care (01) | LOC: MFPLAB 16:13 | PROVIDERS: PCP Family Medicine; Visit Provider Family Medicine | DX: R39.9 Unspecified symptoms and signs involving the genitourinary system (principal) | CPT/HCPCS: 87086 ==

== ENCOUNTER → 2024-06-13 | Outpatient (CLI) | payer MEDICARE, OTHER, SELFPAY ==
--- NOTE | 2024-06-13 13:31 | BI_ITS ---
MAMMOGRAPHY - BILATERAL SCREENING REASON FOR EXAM: Female, 74 years old. Routine annual screening examination. PERTINENT HISTORY: Non-contributory. TECHNIQUE: Digital bilateral breast elmer (3D mammographic acquisition) in the CC and MLO projections. 2-D mediolateral oblique (MLO) and craniocaudad (CC) views of both breasts were obtained. CAD: Full Field Digital Mammography with Computer Added Detection was performed. COMPARISON: Comparison is made with prior study June 10, 2023 and June 02, 2022. FINDINGS: Breast Composition: The breasts are heterogeneously dense, which may obscure small masses. There are no dominant masses or suspicious calcifications. No other significant abnormalities are identified. There has been no significant change since the prior study. BI/SCRN MAMM (CAD)W/ELMER BILAT IMPRESSION: Stable bilateral screening mammogram. Yearly follow-up mammogram recommended. (A) ASSESSMENT CATEGORY: BIRADS Category 1: Negative. A letter regarding these results will be sent to the patient by the facility within 30 days. Approximately 10% of breast cancers are not detected by mammography. A normal mammogram should not delay biopsy of a clinically suspicious abnormality. [id number] Electronically Signed: Gorge Welsh MD at 14:08 EDT ,
== END | disposition home or self-care (01) ==
LOC: OPBI 13:31
PROVIDERS: PCP Family Medicine; Referring Provider Obstetrics & Gynecology; Visit Provider Obstetrics & Gynecology
DX: Z12.31 Encounter for screening mammogram for malignant neoplasm of breast (principal)
CPT/HCPCS: 77063; 77067

== ENCOUNTER → 2024-06-22 | Outpatient (CLI) | payer MEDICARE, OTHER, SELFPAY | END | disposition home or self-care (01) | PROVIDERS: PCP Family Medicine; Referring Provider Family Medicine; Visit Provider Family Medicine | DX: R39.9 Unspecified symptoms and signs involving the genitourinary system (principal) | CPT/HCPCS: 87077; 87086; 87088; 87186 ==

== ENCOUNTER → 2024-07-03 | Outpatient (CLI) | payer MEDICARE, OTHER, SELFPAY ==
--- NOTE | 2024-07-03 15:43 | RAD_ITS ---
INDICATION: BACK PAIN EXAMINATION/TECHNIQUE: X-RAY - XR Spine Lumbar 2 or 3 Views COMPARISON: Prior study dated: 09/23/2015 FINDINGS: VERTEBRAE: Demineralization of the osseous structures. No fracture. No spondylolisthesis. Preservation of the normal lumbar lordosis. Somewhat limited examination due to rotation. Moderate levoscoliosis of the thoracolumbar spine DISCS: Disc space narrowing at multiple levels unchanged. INCLUDED ABDOMEN: Pain management device and wire overlying the sacral spine. RAD/Lumbar Spine 2 or 3 Views IMPRESSION: Degenerative changes and scoliosis as described above. Electronically Signed: Barber Mccollum MD at 13:58 EDT ,
== END | disposition home or self-care (01) ==
PROVIDERS: PCP Family Medicine; Referring Provider Family Medicine; Visit Provider Family Medicine
DX: M54.9 Dorsalgia, unspecified (principal)
CPT/HCPCS: 72100

== ENCOUNTER → 2024-07-21 | Outpatient (CLI) | payer MEDICARE, OTHER, SELFPAY ==
[2024-07-21 17:28] LABS: Color, Urine Yellow (Yellow); Glucose, Dipstick Normal (Normal); Ketone-Dipstick Negative (Negative); Leukocyte Esterase-Dipstick 500 /ul (Negative); Nitrite-Dipstick Negative (Negative); Occult Blood-Urine 25 /ul (Negative); Protein-Dipstick Negative (Negative); Specific Gravity, Urine 1.005 (1.002-1.030); Urine Bilirubin Dipstick Negative (Negative); Urine Clarity Sl. Cloudy (Clear); Urine Urobilinogen Normal (Normal)
== END | disposition home or self-care (01) ==
LOC: LABSPEC 15:48
PROVIDERS: PCP Family Medicine; Visit Provider Family Medicine
DX: G47.00 Insomnia, unspecified (principal)
CPT/HCPCS: 81002

== ENCOUNTER → 2024-09-14 | Outpatient (CLI) | payer MEDICARE, OTHER, SELFPAY ==
[2024-09-14 10:29] LABS: Bacteria 0 SEEN /hpf (None Seen); Mucous, Urine 0 SEEN /hpf (<or=2+)
[2024-09-14 10:40] LABS: Color, Urine Yellow (Yellow); Glucose, Dipstick Normal (Normal); Ketone-Dipstick Negative (Negative); Leukocyte Esterase-Dipstick 500 /ul (Negative); Nitrite-Dipstick Positive (Negative); Occult Blood-Urine 250 /ul (Negative); Protein-Dipstick 100 mg/dl (Negative); Urine Bilirubin Dipstick Negative (Negative); Urine Clarity Cloudy (Clear); Urine Urobilinogen Normal (Normal)
[2024-09-14 11:15] LABS: White Blood Cells >100 SEEN /hpf (0-5)
[2024-09-14 11:16] LABS: Red Blood Cells-Urine 10-25 SEEN /hpf (0-5); Squamous Epithelial Cells - UA 0-5 SEEN /hpf (5-10)
== END | disposition home or self-care (01) ==
LOC: LABSPEC 10:22
PROVIDERS: PCP Family Medicine
DX: R39.9 Unspecified symptoms and signs involving the genitourinary system (principal)
CPT/HCPCS: 81001; 87086; 87088; 87186

== ENCOUNTER → 2024-09-21 | Outpatient (CLI) | payer MEDICARE, OTHER, SELFPAY ==
--- NOTE | 2024-09-21 14:35 | RAD_ITS ---
INDICATION: COUGH EXAMINATION/TECHNIQUE: X-RAY - XR Chest 2 Views COMPARISON: Prior study dated: 07/16/2023 FINDINGS: LINES/DEVICES: None. LUNGS: The lungs are well expanded. Chronic elevation of the right hemidiaphragm. No consolidation, edema or effusion. No pneumothorax. MEDIASTINUM AND CARDIOVASCULAR STRUCTURES: Cardiac silhouette not enlarged. Central airways and mediastinal contour are unremarkable. BONES AND SOFT TISSUES: No acute abnormality. Prominent levoscoliosis of the lower thoracic spine. Left humeral head radiopaque anchors. RAD/Chest PA and Lateral IMPRESSION: No acute pulmonary finding. Electronically Signed: Jerome Serrano MD at 22:03 EST ,
== END | disposition home or self-care (01) ==
LOC: MTRAD 14:32
PROVIDERS: PCP Family Medicine; Referring Provider Family Medicine; Visit Provider Family Medicine
DX: R05.9 Cough, unspecified (principal)
CPT/HCPCS: 71046

== ENCOUNTER → 2024-10-18 | Outpatient (CLI) | payer MEDICARE, OTHER, SELFPAY ==
[2024-10-18 11:42] LABS: SERUM TEARS COLLECTION SPECIMEN PROCESSED
== END | disposition home or self-care (01) ==
PROVIDERS: PCP Family Medicine; Referring Provider Ophthalmology; Visit Provider Ophthalmology
DX: H04.123 Dry eye syndrome of bilateral lacrimal glands (principal)
CPT/HCPCS: 36415

== ENCOUNTER → 2024-11-17 | Outpatient (CLI) | payer MEDICARE, OTHER, SELFPAY ==
[2024-11-17 18:44] LABS: Color, Urine Yellow (Yellow); Glucose, Dipstick Normal (Normal); Ketone-Dipstick Negative (Negative); Leukocyte Esterase-Dipstick 500 /ul (Negative); Nitrite-Dipstick Negative (Negative); Occult Blood-Urine 150 /ul (Negative); Protein-Dipstick 30 mg/dl (Negative); Urine Bilirubin Dipstick Negative (Negative); Urine Clarity Cloudy (Clear); Urine Urobilinogen Normal (Normal); Urine pH 6.5 (5.0 - 8.0)
== END | disposition home or self-care (01) ==
LOC: LABSPEC 15:05
PROVIDERS: PCP Family Medicine
DX: N39.0 Urinary tract infection, site not specified (principal)
CPT/HCPCS: 81002; 87086; 87088

== ENCOUNTER → 2025-04-02 | Outpatient (CLI) | payer MEDICARE, OTHER, SELFPAY ==
[2025-04-02 12:34] LABS: Hematocrit 45.9 % (37-47); Hemoglobin 15.1 g/dL (12.0-15.0); Immature Granulocytes Count 0.010 X10^3/uL (0.0-0.0); Mean Corp Hgb Conc 32.9 g/dL (32-36); Mean Corpuscular Volume 98.5 fL (81-99); Mean Platelet Vol. 11.9 fl (6.2-12.0); NRBC Flagged by Analyzer 0 % (0-5); Platelet Count 117 K/mm3 (150-450); RBC Distribution Width CV 12.8 % (11.6-14.6); RBC Distribution Width SD 45.9 fl (35.1-43.9); Red Blood Count 4.66 M/mm3 (4.2-5.4); White Blood Count 3.9 K/mm3 (4.4-11.0)
[2025-04-02 13:33] LABS: Anion Gap 11 (5-15); BUN 22 mg/dL (4-19); BUN/Creat Ratio 24.8 RATIO (10-20); Calcium,Total 9.7 mg/dL (7.6-11.0); Carbon Dioxide 26.2 mmol/L (21.0-32.0); Chloride 104 mmol/L (98-108); Cholesterol 135 mg/dL (<=200); Glucose 92 mg/dL (70-99); Low Density Lipoprotein Calc. 64 mg/dL; Potassium 4.3 mmol/L (3.3-5.1); Triglycerides 115 mg/dL; Very Low Density Lipoprotein 23 mg/dL (5-40); cholesterol:hdl ratio screen 2.82
== END | disposition home or self-care (01) ==
LOC: MTLAB 11:16
PROVIDERS: PCP Family Medicine; Referring Provider Family Medicine; Visit Provider Family Medicine
DX: E78.5 Hyperlipidemia, unspecified (principal); R53.83 Other fatigue; E03.9 Hypothyroidism, unspecified
CPT/HCPCS: 36415; 80048; 80061; 84443; 85025

== ENCOUNTER → 2025-04-24 | Outpatient (CLI) | payer SELFPAY, MEDICARE, OTHER ==
[2025-04-24 15:02] LABS: SERUM TEARS COLLECTION SPECIMEN PROCESSED
== END | disposition home or self-care (01) ==
PROVIDERS: PCP Family Medicine; Referring Provider Ophthalmology; Visit Provider Ophthalmology
DX: H04.123 Dry eye syndrome of bilateral lacrimal glands (principal)

== ENCOUNTER → 2025-06-22 | Outpatient (CLI) | payer MEDICARE, OTHER, SELFPAY ==
--- NOTE | 2025-06-22 15:30 | BI_ITS ---
EXAM: SCRN MAMM (CAD)W/ELMER BILAT DATE: 06/22/2025 CLINICAL HISTORY: F, Age 75 y/o , SCREEN FOR BREAST CANCER TECHNIQUE: Procedure Code: [id number] Modality: MG Procedure: SCRN MAMM (CAD)W/ELMER BILAT COMPARISON: Prior exam(s) dated 06/13/2024 and 06/10/2023. FINDINGS: TISSUE DENSITY: The breasts are heterogeneously dense, which may obscure small masses. Bilateral Breast Mammographic Findings: No significant masses, calcifications or other abnormalities are identified. Benign-appearing round calcifications are seen in both breasts. Benign vascular calcifications are seen in the right breast. BI/SCRN MAMM (CAD)W/ELMER BILAT IMPRESSION: Benign screening mammogram. OVERALL FINAL ASSESSMENT BI-RADS 2: BENIGN RECOMMENDATION: Routine annual follow-up in 1 Year Additional Recommendation none A letter with findings and recommendations will be mailed to the patient. Reading Location: [id number]
== END | disposition home or self-care (01) ==
PROVIDERS: PCP Family Medicine; Referring Provider Nurse Practitioner Family; Visit Provider Nurse Practitioner Family
DX: Z12.31 Encounter for screening mammogram for malignant neoplasm of breast (principal)
CPT/HCPCS: 77063; 77067